=== PATIENT | female | born 1980 | race Caucasian/White ===

== ENCOUNTER 2018-03-15 15:54 | Outpatient (REF) | payer MEDICAID, SELFPAY | END 2018-03-15 16:14 | LOC: LBN 15:54 | PROVIDERS: PCP Family Medicine | DX: N89.8 Other specified noninflammatory disorders of vagina (principal) | CPT/HCPCS: 87480; 87510; 87660 ==

== ENCOUNTER 2018-03-16 01:47 | Outpatient (CLI) | payer MEDICAID, SELFPAY ==
[2018-03-16 11:45] LABS: ALT 142 U/L (12-78); AST 48 U/L (15-37); Albumin 3.8 g/dL (3.4-5.0); Alkaline Phosphatase 80 U/L (46-116); BUN 12 mg/dL (7-18); Bilirubin, Total 0.3 mg/dL (0.2-1.0); CREATININE 0.65 mg/dL (0.55-1.02); Calcium 8.4 mg/dL (8.5-10.1); Chloride 103 mmol/L (98-107); Cholesterol 192 mg/dL (50-200); Glucose 102 mg/dL (70-100); HDL Cholesterol 64 mg/dL (40-60); LDL CHOLESTEROL 116 mg/dL (<100); Potassium 4.6 mmol/L (3.5-5.1); Sodium 140 mmol/L (136-145); Triglyceride 82 mg/dL (30-150)
[2018-03-17 12:46] LABS: HIV-1/2 Ag & Ab Screen Negative (NEGAT)
== END 2018-03-16 02:07 ==
PROVIDERS: PCP Family Medicine
DX: I10 Essential (primary) hypertension (principal); Z13.220 Encounter for screening for lipoid disorders; Z11.4 Encounter for screening for human immunodeficiency virus [HIV]
CPT/HCPCS: 36415; 80053; 80061; 83721; 87389

== ENCOUNTER 2018-03-17 16:35 | Outpatient (REF) | payer MEDICAID, SELFPAY ==
--- NOTE | 2018-03-17 16:00 | PAPFT_PTH ---
PATIENT: Avani Haro LOC: [facility] U#:[id number] AGE/SX: 37/F ROOM: RE03/17/[address]: Fallon Gomes APRN : 1980 BED: DIS: 03/17/2018 SPEC #: [id number] RECD: 03/18/18 13:09 STATUS: MARYCARMEN REYvette #: [id number] LEEANN: 03/17/18 16:[address]: Fallon Gomes DEPT: [facility] Cytology RECD BY: Nirali Jack ENTERED: 03/18/18 13:09 SP TYPE: PAPFT OTHR DR: Mateo Farooq MD Tissues: 1 - CX/ENDOCX FOR PAP SMEARS Procedures: PAP THIN PREP/UVM Screening HPV DNA PROBE Comments: [id number] (CHLAMYDIA/GC)
[2018-03-19 15:40] LABS: Chlamydia Result Negative; GC Result Negative; Specimen Description SEE COMMENTS
== END 2018-03-17 16:55 ==
LOC: LBN 16:35
PROVIDERS: PCP Family Medicine
DX: Z12.4 Encounter for screening for malignant neoplasm of cervix (principal); Z11.51 Encounter for screening for human papillomavirus (HPV); Z11.3 Encounter for screening for infections with a predominantly sexual mode of transmission
CPT/HCPCS: 87491; 87591; 88142; 87624

== ENCOUNTER 2018-05-25 10:05 | Emergency (ER) | payer MEDICAID, SELFPAY ==
[2018-05-25 10:12] VITALS: BP 121/78; PULSE 99; RESP 18; TEMP 36.5; O2SAT 100
--- NOTE | 2018-05-25 10:41 | ED.GENADUL_ITS ---
Discharge Plan Disposition Patient Disposition: HOME Condition: Fair Discharge Details Chief Complaint: Orthopedic Clinical Impression: Muscle spasm, Musculoskeletal pain Primary Care Provider: Mateo Farooq ED Provider: Delmis Ramirez Home Meds and New Rx's Prescriptions: New lidocaine [Lidoderm] 5 % adhesive patch,medicated 1 patch TP DAILY Qty: 15 RF: 0 metaxalone [Skelaxin] 800 mg tablet 800 mg PO TID PRN (Reason: muscle pain) Qty: 10 RF: 0 Continued cholecalciferol (vitamin D3) 2,000 unit tablet 2,000 unit PO DAILY Qty: 90 RF: 3 lisinopril 10 mg tablet 10 mg PO DAILY Qty: 90 RF: 3 ranitidine HCl 150 mg tablet 150 mg PO BID Qty: 180 RF: 3 acetaminophen [Arthritis Pain Relief (acetam)] 650 MG tablet 2 tab PO BID RF: 0 Vyvanse 60 mg capsule 60 mg PO DAILY MDD 1 tab Qty: 30 RF: 0 Discharge Instructions Instructions: Muscle Spasm (ED) Additional Instructions: Encourage hydration. Continue with Tylenol as needed for discomfort. Lidoderm patches as prescribed for topical relief. Stretching as discussed. Skelaxin as prescribed to help with muscle spasm. REferral for physical therapy is a ttached. If you develop change in sensation, fevers/chills, chest pain, shortness of breath or other new/worsening symptoms please seek care urgently once again. If pain persists over the next 1-2 weeks please follow up with primary care physician. Stand Alone Forms: Work Release Referrals: Mateo Farooq [Primary Care Provider] - Discharge Data Discharge Date/Time-TO BE ENTERED AT DEPARTURE: 05/25/18 12:10 Medical Decision Making <RICHARD Ferguson - Last Filed: 05/26/18 08:11> Patient is a 37 year old female with c/c of left shoulder pain that began 4 days ago. She is indicating the superior aspect of the shoulder with pain radiating down the anterior aspect of her chest. Also endorsing discomfort under the left breast which she reports began a few weeks ago when she had a cold and pulled something. States that htis discomfort has been improving. Denies SOB. Denies pain with ambulation. Feels that movement, particularly flexion and movement of the shoulder worsen the discomfort. No fevers/chills. Denies pain in her neck. Has not noted rash. No recent trauma. 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 No personal or close family history of cardiac disease. She is an active smoker. Patient is s/p tubal ligation. History of GERD, kidney stones, TMJ disorder, chndromalacia, depression. Exam is significant for pain primarily along the trapezius that extends over the anterior superior aspect of the left chest wall. Considered atypical chest pain. Patient is low risk, pain primarily sounds musculoskeletal. However, will obtain EKG and labs for further evaluation particularly as her pain sounds migratory. Had been endorsing pain under the left breast as well, states this is associated with recent cough and is improving. As patient did not have trauma, no imaging is warranted at this time. Lungs are clear, NSR, no murmurs, rubs or gallops. No SOB. EKG reviewed by Dr. Matos, please see his note. No ischemic findings reported Labs without abnormality. Patient is feeling improved somewhat after Skelaxin and Lidoderm patch. I have encouraged gentle stretching. Exercises were given to the patient. Advised heat or ice to affected area. Pain is largely muscular in nature with degree of muscle spasm. Referral for physical therapy will be given. I did offer the patient work note, particularly for light duty as the patient's job entails heavy lifting. However, patient declines. Reports that she does have coworkers whom she can asked to help her. We discussed new/worsening symptoms and when to seek care urgently once again. We will refer her to physical therapy, prescribed lidocaine patches as well as the oral Skelaxin as this worked well for her. All of her questions and concerns were addressed and she is in agreement with this plan. <Cory Matos MD - Last Filed: 05/25/18 11:07> ECG Data Attestation: I personally reviewed and interpreted this ECG (s) as follows: Prior ECG tracings: not available for review Interpretation: sinus rhythm, rate of 81, pr 146, no acute st t wave ischemic findings HPI <RICHARD Ferguson - Last Filed: 05/26/18 08:11> General Mode of arrival: ambulatory . Date/Time Provider Initiated Documentation: 05/25/18 10:13 . Limitations to Documentation: no limitations . Information obtained by: patient . History of Present Illness 37 year old F presents to the emergency department with the chief complaint of left shoulder pain, described as moderate, with intensity rated at 7. Quality is described as aching, and is localized to the left and upper extremity. Patient reports radiation to back. Patient started experiencing this day(s) (4) and it has been constant. Immobilization improves symptom(s), Movement worsens symptoms . Patient notes denies chest pain, cough, fever/chills, headaches, nausea/vomiting, rash, shortness of breath and weakness. Patient did receive the following treatments prior to arrival, other (Tylenol) Related Data Home Medications Medication Instructions Recorded Confirmed acetaminophen [Arthritis Pain 2 tab PO BID 12/22/16 05/25/18 Relief (acetam)] cholecalciferol (vitamin D3) 2,000 2,000 unit PO DAILY #90 tab 03/15/18 05/25/18 unit tablet lisinopril 10 mg tablet 10 mg PO DAILY #90 tab-cap 03/15/18 05/25/18 ranitidine 150 mg tablet 150 mg PO BID #180 tab-cap 03/15/18 05/25/18 lisdexamfetamine 60 mg capsule 60 mg PO DAILY #30 cap MDD 1 tab 05/09/18 05/25/18 lidocaine [Lidoderm] 1 patch TP DAILY #15 each 05/25/18 metaxalone [Skelaxin] 800 mg PO TID PRN #10 tab 05/25/18 Previous Rx's Medication Instructions Recorded cholecalciferol (vitamin D3) 2,000 2,000 unit PO DAILY #90 tab 03/15/18 unit tablet lisinopril 10 mg tablet 10 mg PO DAILY #90 tab-cap 03/15/18 ranitidine 150 mg tablet 150 mg PO BID #180 tab-cap 03/15/18 lisdexamfetamine 60 mg capsule 60 mg PO DAILY #30 cap MDD 1 tab 05/09/18 lidocaine [Lidoderm] 1 patch TP DAILY #15 each 05/25/18 metaxalone [Skelaxin] 800 mg PO TID PRN #10 tab 05/25/18 Allergies Allergy/AdvReac Type Severity Reaction Status Date / Time aspirin Allergy Severe Anaphylaxsi Verified 05/25/18 10:14 s NSAIDS (Non-Steroidal Allergy Severe allergic Verified 05/25/18 10:14 Anti-Inflamma to all NSAIDS atomoxetine HCl Allergy Intermediate HIVES Verified 05/25/18 10:14 [From Strattera] sertraline Allergy Intermediate rash Verified 05/25/18 10:14 tramadol Allergy Mild Rash Verified 05/25/18 10:14 General Stated Complaint: Orthopedic KISHOR: 4 Review of Systems <RICHARD Ferguson - Last Filed: 05/26/18 08:11> Constitutional Reports as per HPI, Denies chills, Denies fever(s), Denies headache(s) and Denies weakness ENT Denies headache(s) Cardiovascular Reports as per HPI, Denies chest pain at rest, Denies chest pain with activity, Denies dyspnea and Denies dyspnea on exertion Respiratory Reports as per HPI, Denies cough, Denies dyspnea and Denies dyspnea on exertion Musculoskeletal Reports as per HPI and Denies tingling Integumentary/Breasts Reports as per HPI, Denies rash and Denies wounds Neurologic Denies headache(s), Denies tingling and Denies weakness PFSH <RICHARD Ferguson - Last Filed: 05/26/18 08:11> Medical History Chondromalacia Depression GERD (gastroesophageal reflux disease) Kidney stones Temporal mandibular joint disorder Umbilical hernia Surgical History Appendectomy (12/26/12) Arthroplasty of knee section Cholecystectomy (03/01/12) Open Carpal Tunnel release Repair of umbilical hernia Ureteroscopy, stone extraction Family History Mother Diabetes Essential hypertension Depression Hyperlipidemia Father Diabetes Essential hypertension Hyperlipidemia Grandfather Heart disease Grandfather Diabetes Heart disease Grandmother Personal history of malignant neoplasm Grandmother No problems noted. Brother Depression Son No problems noted. Son No problems noted. Daughter No problems noted. MATERNAL HISTORY Personal history of malignant neoplasm ADHD Social History household members: other details: 3 current occupational status: employed current occupation: CAREGIVER pets and animals: Yes pets and animals: dog(s) frequency: 1-2 times per week duration: 15-30 minutes/day Smoking/Tobacco Use Status: Current every day tobacco type: cigarettes alcohol intake: current alcohol intake frequency: a few times a month substance use type: does not use jo/christian: Episcopal special jo needs: No Exam <RICHARD Ferguson - Last Filed: 05/26/18 08:11> Const General: cooperative, healthy appearing, comfortable, no acute distress, well developed and well groomed Nutritional Appearance: average body habitus and well nourished Orientation: alert and awake Neck Neck: normal visual inspection, full ROM, no lymphadenopathy, no meningeal signs, trachea midline and supple Chest Chest: normal inspection of the chest, normal palpation of entire chest wall, no crepitus and tenderness pectoral muscle on the left (pain maximal along the superior boarder) Resp Effort & Inspection: normal respiratory effort, able to speak in complete sentences and no respiratory distress Auscultation: clear to auscultation bilaterally, no rales, no rhonchi and no wheezes Cardio Rate: regular rate Rhythm: regular rhythm Heart Sounds: S1 normal and S2 normal GI Inspection: normal to inspection, no abdominal wall ecchymosis, no edema, non- distended and no obesity Palpation: soft, no hepatosplenomegaly, not firm, no guarding and nontender Back/Spine/Pelvis Back: no CVA tenderness Cervical Spine: normal cervical lordosis and cervical ROM normal Thoracic/Lumbar Spine: thoracic and lumbar spine normal to inspection, thoraco- lumbar ROM normal, No thoracic spinal tenderness and No lumbar spinal tenderness Skin General skin exam: no rashes or lesions noted Lesions: no lesions Rashes: no rashes Trauma: no lacerations or abrasions Neuro General: alert and awake Cognition: normal cognition Speech: speech normal Gait: normal gait Motor: muscle tone normal throughout Sensory Exam: no sensory deficits noted Extrem General: normal to inspection, normal capillary refill, no joint enlargement, normal gait and other (2+ distal pulses) Left upper extremity: normal to inspection, full ROM, normal capillary refill, no joint enlargement and shoulder/upper arm Details: inspection abnormal, axillary nerve sensory function normal, normal ROM (patient has tenderness elicited along the trapezius at full FE but this does not limit her) and other (negative neer and Hawkin); no tenderness, no swelling, no abrasions, no ecchymosis and no crepitus; no cyanosis and no edema Psych Appearance: grossly normal and well kempt Mental Status: mental status grossly normal Speech and Movement: speech and movement normal Course <RICHARD Ferguson - Last Filed: 05/26/18 08:11> Vital Signs Temperature 36.5 C 05/25/18 10:12 Pulse 99 H 05/25/18 10:12 Respiratory Rate 18 05/25/18 10:12 Blood Pressure 121/78 05/25/18 10:12 Pulse Oximetry 100 05/25/18 10:12 Temperature 36.5 C 05/25/18 10:12 Temperature Source Temporal Artery Scan 05/25/18 10:12 Pulse 99 H 05/25/18 10:12 Respiratory Rate 18 05/25/18 10:12 Blood Pressure 121/78 05/25/18 10:12 Blood Pressure Position Sitting 05/25/18 10:12 Pulse Oximetry 100 05/25/18 10:12 Oxygen Delivery Method Room Air 05/25/18 10:12 Oxygen Flow Rate 0 05/25/18 10:12 Pain Level 7 05/25/18 10:12
[2018-05-25] MEDS: Lidocaine 5% Patch 1 PATCH TP (10:46)
[2018-05-25 11:10] LABS: Abs Immature Grans 0.01 k/cumm (0.0-0.09); Absolute Basophil Count 0.05 k/cumm (0.0-0.2); Absolute Eosinophil Count 0.09 k/cumm (0.0-0.7); Absolute Lymphocyte Count 2.06 k/cumm (1.2-3.4); Absolute Monocyte Count 0.45 k/cumm (0.11-0.7); Absolute Neutrophil Count 4.96 k/cumm (1.2-6.7); Basophils % 0.7; Eosinophils % 1.2; HCT 39.7 % (36.0-46.0); HGB 13.4 g/dL (12.0-15.5); Immature Grans % 0.1; Mean Corp. HGB Concentration 33.8 g/dL (32.0-36.0); Mean Corpuscular Hemoglobin 32.4 pg (27.0-33.0); Mean Corpuscular Volume 96.1 fL (80-95); Mean Platelet Volume 9.1 fL (8.0-11.0); Monocytes % 5.9; Neutrophils % 65.1; Platelet Count 316 x1000/uL (130-400); RBC 4.13 m/cumm (4.00-5.20); RBC Distribution Width 12.6 % (11.7-14.6); White Blood Cell Count 7.62 k/cumm (4.4-10.8)
[2018-05-25 11:22] LABS: ALT 25 U/L (12-78); AST 18 U/L (15-37); Alkaline Phosphatase 41 U/L (46-116); Anion Gap 11.9 mmol/L (3-11); BUN 15 mg/dL (7-18); Bilirubin, Total 0.3 mg/dL (0.2-1.0); CO2 24.1 mmol/L (21.0-32.0); Chloride 102 mmol/L (98-107); Glucose 116 mg/dL (70-100); Magnesium 1.8 mg/dL (1.8-2.4); Potassium 3.8 mmol/L (3.5-5.1); Sodium 138 mmol/L (136-145); Total Protein 7.5 g/dL (6.4-8.2); Troponin I < 0.02 ng/mL (0.00-0.06)
[2018-05-25 11:28] LABS: Calcium 9.3 mg/dL (8.5-10.1)
--- NOTE | 2018-05-25 11:57 | NUR.NOTE ---
Pt. sleeping, RR WNL.
[2018-05-25 12:03] VITALS: BP 113/64; PULSE 79; RESP 16; O2SAT 100
== END 2018-05-25 12:10 | disposition home or self-care (01) ==
LOC: ER 12:00
PROVIDERS: Emergency Provider Physician Assistant; PCP Family Medicine
DX: M62.838 Other muscle spasm (principal); M25.512 Pain in left shoulder
CPT/HCPCS: 80053; 93005; 99283; 83735; 84484; 85025; 93010

== ENCOUNTER 2018-05-26 16:09 | Outpatient (CLI) | payer MEDICAID, SELFPAY ==
--- NOTE | 2018-05-26 14:12 | DI.RAD_ITS ---
SYMPTOMS/DIAGNOSIS: LEFT-SIDED MUSCULOSKELETAL CHEST PAIN, R07.89, CHEST WALL PAIN, ? RIB FX PA AND LATERAL CHEST: The heart is normal in size. The lungs are clear. The mediastinal structures and pleura appear intact. SUMMARY: Normal chest.
== END 2018-05-26 16:29 ==
PROVIDERS: PCP Family Medicine; Visit Provider Nurse Practitioner Family
DX: R07.89 Other chest pain (principal)
CPT/HCPCS: 71046

== ENCOUNTER 2019-03-18 02:41 | Outpatient (CLI) | payer MEDICAID, SELFPAY ==
[2019-03-18 10:13] LABS: ALT 14 U/L (14-59); AST 11 U/L (15-37); Albumin 3.6 g/dL (3.4-5.0); Alkaline Phosphatase 44 U/L (46-116); Anion Gap 9.6 mmol/L (3-11); BUN 9 mg/dL (7-18); Bilirubin, Total 0.3 mg/dL (0.2-1.0); CO2 27.4 mmol/L (21.0-32.0); CREATININE 0.79 mg/dL (0.55-1.02); Calcium 8.5 mg/dL (8.5-10.1); Calculated LDL 147 mg/dL; Chloride 101 mmol/L (98-107); Cholesterol 230 mg/dL (50-200); Glucose 97 mg/dL (70-100); HDL Cholesterol 42 mg/dL (40-60); Potassium 4.6 mmol/L (3.5-5.1); Sodium 138 mmol/L (136-145); Total Protein 7.1 g/dL (6.4-8.2); Triglyceride 207 mg/dL (30-150)
[2019-03-18 10:34] LABS: C-Reactive Protein 0.06 mg/dL (0.0-0.3)
[2019-03-21 11:59] LABS: Rheumatoid Factor 16 IU/mL (<12.5)
== END 2019-03-18 03:01 ==
DX: I10 Essential (primary) hypertension (principal); M25.50 Pain in unspecified joint; Z13.220 Encounter for screening for lipoid disorders; Z00.00 Encounter for general adult medical examination without abnormal findings
CPT/HCPCS: 36415; 80053; 80061; 86140; 86431

== ENCOUNTER 2019-04-28 14:46 | Outpatient (CLI) | payer MEDICAID, SELFPAY ==
[2019-04-28 17:34] LABS: TSH (W/Ref FT4) 1.15 uIU/mL (0.36-3.74)
[2019-05-02 13:56] LABS: Chlamydia Result Negative (Negative)
[2019-05-02 15:09] LABS: GC Result Negative (Negative)
== END 2019-04-28 15:06 ==
PROVIDERS: Visit Provider Nurse Practitioner Family
DX: N92.6 Irregular menstruation, unspecified (principal); Z11.3 Encounter for screening for infections with a predominantly sexual mode of transmission
CPT/HCPCS: 36415; 87491; 87591; 84443

== ENCOUNTER 2019-05-04 01:37 | Outpatient (CLI) | payer MEDICAID, SELFPAY ==
--- NOTE | 2019-05-04 13:06 | DI.US_ITS ---
EXAM: US PELVIS AND TRANSVAGINAL CLINICAL HISTORY: Anormal bleeding, N93.9 TECHNIQUE: Ultrasound performed using standard protocol. COMPARISON: ABDOMEN ULTRASOUND from 07/26/2012 FINDINGS: Pelvic ultrasound was performed transabdominally and transvaginally. Please see the accompanying eduard a sheet for measurements of pelvic structures. There an old reported scar at the lower don rine segment with minimal myometrial deformity at this site. Endometrial stripe is homogeneous and a bout 10 millimeters in thickness. No free fluid identified in the cul-de-sac. Limited scanning of t he kidneys is unremarkable. IMPRESSION: Negative pelvic ultrasound.
== END 2019-05-04 01:57 ==
PROVIDERS: Visit Provider Nurse Practitioner Family
DX: N93.9 Abnormal uterine and vaginal bleeding, unspecified (principal)
CPT/HCPCS: 76830; 76856

== ENCOUNTER 2019-11-02 01:02 | Outpatient (CLI) | payer MEDICAID, SELFPAY ==
--- NOTE | 2019-11-02 07:45 | DI.MRI_ITS ---
EXAM: MR BRAIN WO CLINICAL HISTORY: ?MS,PARESTHESIA OF SKIN, R20.2. TECHNIQUE: Multiplanar multisequence MRI of the brain was performed. CONTRAST MATERIAL: Noncontrast COMPARISON: No exams were available for comparison FINDINGS: VENTRICLES AND EXTRA AXIAL SPACES: Normal in size and morphology for the patient's age. HEMORRHAGE: None. CEREBRAL PARENCHYMA: Normal jackson-white matter differentiation. There are a few scattered tiny high s ignal lesions seen on best on FLAIR images scattered in the white matter. No periventricular lesions are seen. No focus of restricted diffusion to suggest acute infarct. No space-occupying lesion iden tified. MIDLINE SHIFT: None. BRAINSTEM/CEREBELLUM: Normal. The vascular flow voids appear intact. The orbits and pituitary are unremarkable. VISUALIZED PARANASAL SINUSES/MASTOIDS: Clear. IMPRESSION: A few scattered tiny high signal foci in the white matter, nonspecific.. DATA REPOSITORY:
== END 2019-11-02 01:22 ==
PROVIDERS: Visit Provider Psychiatry & Neurology Neurology
DX: R20.2 Paresthesia of skin (principal); R90.82 White matter disease, unspecified
CPT/HCPCS: 36415; 80186; 70551; 82607; 83036; 84165

== ENCOUNTER 2020-03-22 02:33 | Outpatient (CLI) | payer MEDICAID, SELFPAY ==
[2020-03-22 10:30] LABS: C-Reactive Protein 0.13 mg/dL (0.0-0.3)
[2020-03-22 10:33] LABS: Calculated LDL 200 mg/dL (<100); Cholesterol 284 mg/dL (<200); HDL Cholesterol 41 mg/dL (40-60); Triglyceride 216 mg/dL (<150)
[2020-03-22 10:35] LABS: ALT 20 U/L (14-59); AST 14 U/L (15-37); Albumin 3.6 g/dL (3.4-5.0); Alkaline Phosphatase 39 U/L (46-116); Anion Gap 10.3 mmol/L (3-11); BUN 13 mg/dL (7-18); Bilirubin, Total 0.3 mg/dL (0.2-1.0); CO2 24.7 mmol/L (21.0-32.0); CREATININE 0.83 mg/dL (0.55-1.02); Calcium 9.3 mg/dL (8.5-10.1); Chloride 102 mmol/L (98-107); Glucose 103 mg/dL (74-106); Potassium 4.2 mmol/L (3.5-5.1); Sodium 137 mmol/L (136-145)
== END 2020-03-22 02:53 ==
PROVIDERS: Visit Provider Nurse Practitioner Family
DX: E78.5 Hyperlipidemia, unspecified (principal); I10 Essential (primary) hypertension; M06.9 Rheumatoid arthritis, unspecified; Z79.899 Other long term (current) drug therapy
CPT/HCPCS: 36415; 80048; 80053; 80061; 86140

== ENCOUNTER 2020-03-23 07:40 | Outpatient (CLI) | payer MEDICAID, SELFPAY ==
[2020-03-23 10:28] LABS: Abs Immature Grans 0.02 10^3/uL (0.0-0.06); Absolute Basophil Count 0.06 10^3/uL (0.0-0.2); Absolute Eosinophil Count 0.09 10^3/uL (0.0-0.7); Absolute Lymphocyte Count 2.89 10^3/uL (1.2-3.4); Absolute Neutrophil Count 2.16 10^3/uL (1.2-6.7); Basophils % 1.1; Eosinophils % 1.6; HCT 41.8 % (36.0-46.0); HGB 13.7 g/dL (11.2-15.7); Immature Grans % 0.4; Lymphocytes % 51.4; MCH 30.9 pg (27.0-33.0); MCHC 32.8 % (32.0-36.0); MCV 94.4 fL (80-95); MPV 9.4 fL (8.0-11.0); Monocytes % 7.1; Neutrophils % 38.4; Nucleated RBC 0 %; Platelet Count 272 10^3/uL (130-400); RBC 4.43 10^6/uL (3.93-5.22); RDW 12.7 % (11.7-14.6); RDW-SD 43.7 fL; WBC 5.62 10^3/uL (4.4-10.8)
== END 2020-03-23 08:00 ==
PROVIDERS: Visit Provider Nurse Practitioner Family
DX: M06.9 Rheumatoid arthritis, unspecified (principal); Z79.899 Other long term (current) drug therapy
CPT/HCPCS: 85025

== ENCOUNTER 2020-05-11 03:50 | Outpatient (CLI) | payer MEDICAID, SELFPAY ==
--- NOTE | 2020-05-11 08:15 | DI.US_ITS ---
EXAM: US RENAL CLINICAL HISTORY: right flank pain, hx of urinary calculi,Z98.890,R31.9,HEMATURIA,Z87.442. TECHNIQUE: Phillips scale, color and spectral Doppler were used. COMPARISON: CT RENAL COLIC WO CONTRAST from 09/13/2014 FINDINGS: Renal size in cm: Right: 13 left: 10.2 Echogenicity: Normal Hydronephrosis: No Cyst or mass: 1.9 centimeter cyst mid right kidney Nephrolithiasis: No none seen. Small bilateral stones were demonstrated on the previous CT Other findings: None Bladder:Normal Prevoid vol:94 cc Postvoid vol:9 cc Both ureteral jets were visualized. IMPRESSION: Small right renal cysts. No stones are demonstrated. No evidence of hydronephrosis. DATA REPOSITORY:
== END 2020-05-11 04:10 ==
DX: N28.1 Cyst of kidney, acquired (principal); Z87.442 Personal history of urinary calculi; R31.9 Hematuria, unspecified
CPT/HCPCS: 76770

== ENCOUNTER 2020-06-05 00:35 | Outpatient (CLI) | payer MEDICAID, SELFPAY ==
--- NOTE | 2020-06-05 08:30 | DI.MAMMO_ITS ---
EXAM: MAMMO SCREENING CLINICAL HISTORY: screening,Z12.39 TECHNIQUE: Mammograms were interpreted according to the usual protocol including computer analysis w [employer] CAD system, tomosynthesis and C-view imaging. COMPARISON: FINDINGS: The breasts are of moderate density with fairly symmetrical distribution of fibroglandular tissue. N o dominant mass or clumped microcalcification is identified in either breast. Today's examination is a baseline examination. IMPRESSION: No specific evidence of malignancy at this time. Routine screening examinations are suggested at yea rly intervals in this age group according to the ACR guidelines. BI-RADS Category 1 - Negative Breast Density - Category B - Scattered areas of fibroglandular density
== END 2020-06-05 00:55 ==
DX: Z12.31 Encounter for screening mammogram for malignant neoplasm of breast (principal)
CPT/HCPCS: 77063; 77067

== ENCOUNTER 2021-09-23 01:05 | Outpatient (CLI) | payer MEDICAID, SELFPAY ==
--- NOTE | 2021-09-23 08:00 | DI.US_ITS ---
Exam(s) US PELVIS TRANSVAGINAL EXAM: US PELVIS TRANSVAGINAL CLINICAL HISTORY: Abnormal uterine bleeding,N93.9 TECHNIQUE: Transabdominal and transvaginal imaging was performed using standard protocol. COMPARISON: CT RENAL COLIC WO CONTRAST from 09/13/2014 FINDINGS: KIDNEYS: Kidneys are symmetric in size. No evidence of renal calculi. No evidence of hydronephrosis. No renal mass or cyst identified. UTERUS: Anteverted. 8.7 x 4.3 x 6 cm. Endometrium: 11.5 millimeters in thickness. Endometrium not well seen transvaginally due to artifact . Endometrium appears heterogeneous. Myometrium: Unremarkable. scar noted. Cervix: Unremarkable. OVARIES: Right: Cyst or mass: None. Left: Cyst or mass: None. DOPPLER: Color: Symmetric and uniform flow to both ovaries. No hyperemia. Duplex: Normal ovarian arterial waveforms visualized. CUL-DE-SAC: Free fluid: None. IMPRESSION: 1. Mild thickening and heterogeneity of the endometrium. 2. Unremarkable bilateral ovaries. DATA REPOSITORY:
== END 2021-09-23 01:25 ==
PROVIDERS: PCP Internal Medicine; Visit Provider Obstetrics & Gynecology
DX: N93.8 Other specified abnormal uterine and vaginal bleeding (principal); R93.89 Abnormal findings on diagnostic imaging of other specified body structures; N85.8 Other specified noninflammatory disorders of uterus
CPT/HCPCS: 76830; 76856

== ENCOUNTER 2021-09-26 02:41 | Outpatient (CLI) | payer MEDICAID, SELFPAY ==
[2021-09-26 13:45] LABS: HCT 39.4 % (36.0-46.0); HGB 12.7 g/dL (11.2-15.7); MCH 29.4 pg (27.0-33.0); MCHC 32.2 % (32.0-36.0); MCV 91.2 fL (80-95); MPV 9.7 fL (8.0-11.0); Platelet Count 403 10^3/uL (130-400); RBC 4.32 10^6/uL (3.93-5.22); RDW 13.3 % (11.7-14.6); RDW-SD 44.9 fL; WBC 6.14 10^3/uL (4.4-10.8)
[2021-09-26 14:28] LABS: ALT 37 U/L (14-59); AST 20 U/L (15-37); Albumin 3.9 g/dL (3.4-5.0); Alkaline Phosphatase 47 U/L (46-116); Anion Gap 9.3 mmol/L (3-11); BUN 15 mg/dL (7-18); Bilirubin, Total 0.4 mg/dL (0.2-1.0); CO2 23.7 mmol/L (21.0-32.0); CREATININE 0.7 mg/dL (0.55-1.02); Calcium 8.9 mg/dL (8.5-10.1); Calculated LDL 193 mg/dL (<100); Chloride 102 mmol/L (98-107); Cholesterol 288 mg/dL (<200); Glucose 112 mg/dL (74-106); HDL Cholesterol 42 mg/dL (40-60); Potassium 4.1 mmol/L (3.5-5.1); Sodium 135 mmol/L (136-145); Total Protein 7.5 g/dL (6.4-8.2); Triglyceride 269 mg/dL (<150)
[2021-09-27 11:31] LABS: Hepatitis C Ab w Rflx HCV PCR Negative (Negative)
== END 2021-09-26 02:42 | disposition home or self-care (01) ==
LOC: LBO 02:41
PROVIDERS: Nurse Practitioner; PCP Internal Medicine; Visit Provider Internal Medicine
DX: I10 Essential (primary) hypertension (principal); Z11.59 Encounter for screening for other viral diseases
CPT/HCPCS: 36415; 80053; 80061; 85027; 86803

== ENCOUNTER 2021-10-08 12:48 | Outpatient (REF) | payer MEDICAID, SELFPAY ==
--- NOTE | 2021-10-08 11:15 | PAPFT_PTH ---
PATIENT: Avani Haro LOC: [facility] U#:[id number] AGE/SX: 41/F ROOM: RE10/08/[address]: Annika Chu MD : 1980 BED: DIS: 10/08/2021 SPEC #: [id number] RECD: 10/08/21 16:13 STATUS: MARYCARMEN CAREY #: [id number] LEEANN: 10/08/21 11:[address]: Annika Chu DEPT: [facility] Cytology RECD BY: Boogie Link Tissues: 1 - CX/ENDOCX FOR PAP SMEARS Procedures: PAP THIN PREP/UVM Screening HPV DNA PROBE Comments: [id number]
--- NOTE | 2021-10-08 11:15 | ENDOMET_PTH ---
PATIENT: Avani Haro LOC: [facility] U#:[id number] AGE/SX: 41/F ROOM: RE10/08/[address]: Annika Chu MD : 1980 BED: DIS: 10/08/2021 SPEC #: [id number] RECD: 10/08/21 14:38 STATUS: MARYCARMEN REQ #: [id number] LEEANN: 10/08/21 11:[address]: Annika Chu DEPT: Surgical Specimen RECD BY: Boogie Link ENTERED: 10/08/21 14:39 SP TYPE: Endomet OTHR DR: Elke Garcia MD Tissues: 1 - ENDOMETRIUM BX/SARA Procedures: GROSS AND MICRO LEVEL 4 Comments: [id number]
== END 2021-10-08 12:49 | disposition home or self-care (01) ==
LOC: LBN 12:48
PROVIDERS: PCP Internal Medicine; Visit Provider Obstetrics & Gynecology
DX: Z12.4 Encounter for screening for malignant neoplasm of cervix (principal); Z11.51 Encounter for screening for human papillomavirus (HPV); N93.8 Other specified abnormal uterine and vaginal bleeding; N85.8 Other specified noninflammatory disorders of uterus
CPT/HCPCS: 88142; 88305; 87624

== ENCOUNTER → 2021-10-28 01:58 | Outpatient (CLI) | payer MEDICAID, SELFPAY ==
--- NOTE | 2021-10-28 08:00 | DI.MAMMO_ITS ---
Exam(s) MAMMO SCREENING EXAM: MAMMO SCREENING CLINICAL HISTORY: screening, Z12.39 TECHNIQUE: Mammograms were interpreted according to the usual protocol including computer analysis w [employer] CAD system, tomosynthesis and C-view imaging. COMPARISON: 2020 FINDINGS: The breasts are composed of scattered fibroglandular densities, Breast Density category B. No suspicious masses or suspicious microcalcifications are seen. No skin thickening or abnormal axillary lymph nodes are seen. There has been no significant change from prior exams. IMPRESSION: BI-RADS Category 1, Negative mammogram Yearly screening mammography is recommended. Breast Density - Category B, scattered fibroglandular densities. A negative radiographic report should not delay biopsy if a dominant or clinically suspicious mass is present. Up to ten percent of cancers are not identified on mammography. A negative report may reinforce clinical impression. Adenosis and dense breasts may obscure an underlying neoplasm. False positive reports average 6 to 10%. Patient will receive a letter notifying them of these results.
== END ==
PROVIDERS: PCP Internal Medicine; Visit Provider Nurse Practitioner
DX: Z12.31 Encounter for screening mammogram for malignant neoplasm of breast (principal)
CPT/HCPCS: 77063; 77067

== ENCOUNTER 2022-02-15 13:19 | Emergency (ER) | payer MEDICAID, SELFPAY ==
[2022-02-15 13:23] VITALS: BP 146/68; PULSE 70; RESP 18; TEMP 36.6; O2SAT 100
--- NOTE | 2022-02-15 13:30 | DI.CT_ITS ---
Exam(s) CT RENAL COLIC WO EXAM: CT RENAL COLIC WO CLINICAL HISTORY: L flank pain. TECHNIQUE: Imaging Protocol: Axial computed tomography images with coronal and sagittal reformatted images were created and reviewed CONTRAST MATERIAL: Intravenous: none Oral: None COMPARISON: CT ABD PELVIS WITH CONTRAST from 09/10/2014 FINDINGS: VISUALIZED LUNG BASES: No nodules nor pleural effusions evident. ABDOMEN: There is no ascites. LIVER: There are no obvious focal hepatic lesions evident of this noninfused study. GALLBLADDER/BILIARY: Gallbladder is again noted be surgically absent. CBD is not dilated. PANCREAS: No evidence of pancreatic mass nor dilatation of the pancreatic duct. SPLEEN: Spleen is not enlarged. No obvious intrasplenic lesions. ADRENALS: There are no significant adrenal masses. KIDNEYS:In the right kidney there is a 2.8 by 1.8 cm partially exophytic cyst which has increased in size from 2015.. Nevertheless remains a simple appearing cyst. No other focal findings in the right kidney. In the opposite-left kidney there is a nonobstructive 4 millimeter calculus in the inferior pole calyx. However, there is also a calculus in the upper left ureter just below the UPJ level, th is calculus measuring 5 x 3 millimeters. Mild dilatation left collecting system above this level.. ABDOMINAL AORTA: Abdominal aorta is not enlarged. LYMPH NODES: There is no retroperitoneal nor paraaortic adenopathy. ABDOMINAL WALL: Left-sided para umbilical fat containing hernia again noted, increased in size from p revious but still not containing bowel loops within the hernia sac and there is no bowel obstruction evident. GI: There is no evidence of bowel obstruction, free air, nor abscess. PELVIS: LYMPH NODES: There is no intrapelvic nor inguinal adenopathy. GI: The appendix is surgically absent.There are few uncomplicated diverticuli in the sigmoid. No siva dence of acute diverticulitis. URINARY BLADDER: No calculi nor obvious masses evident REPRODUCTIVE: IUD noted in the uterine cavity. No significant adnexal masses. No free fluid. OSSEOUS: No significant osseous lesions. IMPRESSION: 1. There is mild left-sided hydronephrosis due to an obstructing 5 x 3 millimeter calculus just below the left ureteropelvic junction. There are no calculi seen below this level. There is an additiona l nonobstructive calculus in lower pole of the ipsilateral left kidney noted. 2. No calculi seen in the opposite-right kidney. 3. Gallbladder is again noted be surgically absent. No significant dilatation of the biliary tree. 4. Anterior abdominal hernia which contains mesenteric fat but no bowel loops therein. No bowel obs truction. IUD in the uterus in satisfactory position. RADIATION DOSE DELIVERED: 1,188.98mGy.cm Total DLP DATA REPOSITORY: All CT scans at this facility are submitted to the National Radiology Data Registry (NRDR) Dose Index Registry (DIR) with the [employer] (ACR). RADIATION OPTIMIZATION: All CT scans at this facility use at least one of these dose optimization te chniques: automated exposure control; mA and/or kV adjustment per patient size (includes targeted exa ms where dose is matched to clinical indication); or iterative reconstruction.
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
[2022-02-15 14:20] VITALS: O2SAT 99
[2022-02-15 14:21] VITALS: BP 121/73; PULSE 66
[2022-02-15 14:45] LABS: Bilirubin Color Interference (Negative); Blood Color Interference (Negative); Clarity Cloudy (Clear); Glucose Color Interference mg/dL (Negative); Ketones Color Interference mg/dL (Negative); Leukocyte Esterase Color Interference (Negative); Nitrite Color Interference (Negative); Specific Gravity 1.021 (1.005-1.025); Urobilinogen Color Interference EU/dL (Up TO 0.2)
[2022-02-15 14:51] LABS: Bacteria Rare HPF (Negative); C & S Indicated? Yes; Casts Negative LPF (Negative); Crystals Negative HPF (Negative); Epithelial Cells Rare HPF (Negative); Mucus Negative (Negative); RBC >50 HPF (0-2); WBC >50 HPF (0-5)
--- NOTE | 2022-02-15 15:03 | DI.VRAD_ITS ---
PROCEDURE INFORMATION: Exam: CT Abdomen And Pelvis Without Contrast Exam date and time: 02/15/2022 2:25 PM Age: 41 years old Clinical indication: Abdominal pain; Acute; Patient HX: Lt flank pain TECHNIQUE: Imaging protocol: Computed tomography of the abdomen and pelvis without contrast. Radiation optimization: All CT scans at this facility use at least one of these dose optimization techniques: automated exposure control; mA and/or kV adjustment per patient size (includes targeted exams where dose is matched to clinical indication); or iterative reconstruction. COMPARISON: US PELVIS TRANSVAGINAL 09/23/2021 1:20 PM FINDINGS: Liver: No focal intrahepatic abnormality is identified. Gallbladder and bile ducts: Prior cholecystectomy. No significant biliary ductal dilatation. Pancreas: Pancreas unremarkable Spleen: Spleen is unremarkable Adrenal glands: Adrenals are unremarkable Kidneys and ureters: There are bilateral nonobstructing renal calculi, largest is seen at the lower pole of the left kidney measuring approximately 4-5 mm in maximum diameter. There is [id number] left hydronephrosis secondary to an obstructing calculus in the proximal left ureter/left ureteral pelvic junction. This measures approximately 4 mm in diameter on series 3, image 418. It is located at approximately the level of the L3-L4 disc space. No other ureteral calculi are identified. No right hydronephrosis. There is a cyst noted laterally in the right kidney measuring approximately 2.8 cm in diameter on series 3, image 261. There is no solid mass identified on this noncontrast enhanced exam Stomach and bowel: No evidence of bowel obstruction. No discrete mass or pneumatosis. There are a few scattered diverticuli but no evidence of acute diverticulitis. Appendix: Prior appendectomy. Intraperitoneal space: No free fluid focal collections or free intraperitoneal air. Vasculature: Unremarkable. No abdominal aortic aneurysm. The Lymph nodes: Unremarkable. No enlarged lymph nodes. Urinary bladder: Bladder is nondistended. No bladder calculi are identified. There is apparent bladder wall thickening which is nonspecific given the lack of distension. Reproductive: Uterus is anteverted. There is an intrauterine device noted. No significant adnexal abnormality is identified. Bones/joints: There is no acute or destructive bony abnormality. Soft tissues: There is laxity of the ventral abdominal wall. There is rectus diastasis and a midline ventral hernia above and at the level of the umbilicus. It is eccentric to the left of midline. It contains only mesenteric fat. The subcutaneous soft tissues are otherwise unremarkable. IMPRESSION: 1. Left hydronephrosis secondary to an obstructing calculus left ureter L3-L4 level/left ureteral pelvic junction. Additional nonobstructing renal calculi. No right hydronephrosis or right renal calculi identified. 2. Laxity of the ventral abdominal wall/rectus diastasis with ventral hernia containing mesenteric fat Dictated and Authenticated by: Brittany Jeffery MD. Ordering:CANDICE Bryant MD
[2022-02-15] MEDS: Normal Saline 1,000 ML 1000 ML IV (15:06)
[2022-02-15] MEDS: Ondansetron 4 MG/2 ML VIAL IVP (15:08)
[2022-02-15] MEDS: HYDROmorphone 2 MG/ML SYR 1 MG IVP ×2 (15:08→16:54)
[2022-02-15 15:23] LABS: Abs Immature Grans 0.05 10^3/uL (0.0-0.06); Absolute Basophil Count 0.08 10^3/uL (0.0-0.2); Absolute Lymphocyte Count 1.19 10^3/uL (1.2-3.4); Absolute Monocyte Count 0.38 10^3/uL (0.1-0.8); Basophils % 0.6; Eosinophils % 0.5; HCT 40.4 % (36.0-46.0); HGB 13.5 g/dL (11.2-15.7); Immature Grans % 0.4; Lymphocytes % 9.2; MCH 29.7 pg (27.0-33.0); MCHC 33.4 % (32.0-36.0); MCV 89 fL (80-95); MPV 10.1 fL (8.0-11.0); Monocytes % 2.9; Neutrophils % 86.4; Platelet Count 367 10^3/uL (130-400); RBC 4.55 10^6/uL (3.93-5.22); RDW 13.1 % (11.7-14.6); RDW-SD 42.7 fL; WBC 12.94 10^3/uL (4.4-10.8)
[2022-02-15 15:29] LABS: Absolute Eosinophil Count 0.06 10^3/uL (0.0-0.7); Absolute Neutrophil Count 11.18 10^3/uL (1.2-6.7)
[2022-02-15 15:37] LABS: ALT 33 U/L (14-59); AST 20 U/L (15-37); Albumin 3.6 g/dL (3.4-5.0); Alkaline Phosphatase 42 U/L (46-116); Anion Gap 7.7 mmol/L (3-11); BUN 10 mg/dL (7-18); Bilirubin, Total 0.4 mg/dL (0.2-1.0); CO2 26.3 mmol/L (21.0-32.0); CREATININE 0.8 mg/dL (0.55-1.02); Calcium 8.8 mg/dL (8.5-10.1); Chloride 102 mmol/L (98-107); Estimated GFR 94.87 (mL/min/1.73m2); Glucose 120 mg/dL (74-106); Sodium 136 mmol/L (136-145); Total Protein 7.8 g/dL (6.4-8.2)
[2022-02-15] MEDS: Tamsulosin 0.4 MG CAPCR PO (16:25)
[2022-02-15] MEDS: ACETAMINOPHEN 1,000 MG/100 ML BTL 400 MG IVPB (16:55)
[2022-02-15] MEDS: Normal Saline Flush 10 ML SYR IVP (16:56)
[2022-02-15 17:47] VITALS: BP 111/72; PULSE 79; RESP 18; TEMP 36.8; O2SAT 99
[2022-02-15 18:04] VITALS: BP 111/72; PULSE 79; RESP 18; TEMP 36.8; O2SAT 99
--- NOTE | 2022-02-15 19:53 | NUR.NOTE ---
Referral faxed to [facility] Urology to f/u for kidney stone.Nursing Note:
== END 2022-02-15 18:09 | disposition home or self-care (01) ==
PROVIDERS: Emergency Provider Emergency Medicine; PCP Internal Medicine
DX: N13.2 Hydronephrosis with renal and ureteral calculous obstruction (principal); F17.200 Nicotine dependence, unspecified, uncomplicated
CPT/HCPCS: 80053; 81025; 96361; 96374; 96375; 99284; 74176; 81003; 81015; 85025; 87086; J0131; J1170; J2405

== ENCOUNTER 2022-02-19 13:45 | Outpatient (CLI) | payer MEDICAID, SELFPAY ==
[2022-02-19 13:32] LABS: HCT 34.5 % (36.0-46.0); HGB 11.6 g/dL (11.2-15.7); MCHC 33.6 % (32.0-36.0); MCV 89 fL (80-95); Platelet Count 329 10^3/uL (130-400); RBC 3.87 10^6/uL (3.93-5.22); RDW 13.1 % (11.7-14.6); RDW-SD 42.3 fL; WBC 10.23 10^3/uL (4.4-10.8)
[2022-02-19 13:47] LABS: Source Nasal/Nares
[2022-02-19 14:11] LABS: Bilirubin Negative (Negative); Blood Negative (Negative); Clarity Clear (Clear); Glucose Negative (Negative); Ketones Negative (Negative); Leukocyte Esterase Negative (Negative); Nitrite Positive (Negative)
[2022-02-19 14:22] LABS: Bacteria Few HPF (Negative); C & S Indicated? C&S Done As Ordered; Casts Negative LPF (Negative); Crystals Negative HPF (Negative); Epithelial Cells Few HPF (Negative); Mucus Negative (Negative); RBC 0-2 HPF (0-2); WBC 0-2 HPF (0-5)
[2022-02-19 16:53] LABS: COVID-19 PCR Negative (Negative)
== END 2022-02-19 13:46 | disposition home or self-care (01) ==
LOC: LBO 13:47
PROVIDERS: PCP Internal Medicine; Visit Provider Nurse Practitioner Gerontology
DX: N20.1 Calculus of ureter (principal); R50.9 Fever, unspecified; Z11.59 Encounter for screening for other viral diseases; Z20.822 Contact with and (suspected) exposure to COVID-19
CPT/HCPCS: 36415; 85027; 87077; 87635; 81003; 81015; 87086; 87186

== ENCOUNTER 2022-02-20 08:07 | Day surgery (SDC) | payer MEDICAID, SELFPAY ==
[2022-02-20] VITALS (10 sets, daily range): BP systolic 89–136; BP diastolic 44–93; PULSE 65–100; RESP 13–20; TEMP 36.2–36.6; O2SAT 95–100; BMI 34.7
--- NOTE | 2022-02-20 06:17 | W.ANESPRE ---
General Info Date of Service Date Performed: 02/20/22 Height: 5 ft 5 in Weight: 94.801 kg Body Mass Index (BMI): 34.7 Surgical Procedure: Operation Date: 02/20/22 09:55 Proposed Procedure Side Surgeon p Cystoscopy/Laser/Retrograde/Ureteroscopy/Stone Manipulation/? Stent Placement Left Doni Chanel MD Meds Allergies and Home Medications Allergies Allergy/AdvReac Type Severity Reaction Status Date / Time aspirin Allergy Severe Anaphylaxsi Verified 02/20/22 08:40 s naproxen Allergy Severe hives and Verified 02/20/22 08:40 swollen airway NSAIDS (Non-Steroidal Allergy Severe allergic Verified 02/20/22 08:40 Anti-Inflamma to all NSAIDS atomoxetine HCl Allergy Intermediate HIVES Verified 02/20/22 08:40 [From Strattera] sertraline Allergy Intermediate rash Verified 02/20/22 08:40 tramadol Allergy Mild Rash Verified 02/20/22 08:40 glucosamine AdvReac Intermediate Increased Verified 02/20/22 08:40 Joint Pain, Weakness Home Medication Medication Instructions Recorded acetaminophen 650 mg 2 tab PO BID 12/22/16 tablet,extended release (Arthritis Pain Relief (acetaminophen) ER) cholecalciferol (vitamin D3) 50 2,000 unit PO DAILY #90 tabs 08/23/20 mcg (2,000 unit) tablet hydroxyzine HCl 25 mg tablet 25 mg PO BID PRN 08/23/20 triamcinolone acetonide 0.5 % 1 applic topical BID rash #30 grams 08/23/20 topical ointment adalimumab 40 mg/0.4 mL 40 mg subcut Q2W 12/05/20 subcutaneous syringe kit (Humira(CF)) fexofenadine 180 mg tablet 180 mg PO DAILY 03/12/21 (Stephanie Allergy) albuterol sulfate 90 mcg/actuation 2 puff inhalation Q6H PRN 09/23/21 aerosol inhaler (Ventolin HFA) shortness of breath or wheezing #8 grams gabapentin 100 mg capsule 100 mg PO DAILY 09/23/21 lisinopril 10 mg tablet 10 mg PO DAILY #90 tab-caps 09/23/21 omeprazole 20 mg tablet,delayed 20 mg PO DAILY 09/23/21 release gabapentin 400 mg capsule 400 mg PO DAILY 10/08/21 levonorgestrel 20.1 mcg/24 hrs (6 1 device intrauterine ONCE 10/08/21 yrs) 52 mg intrauterine device (Liletta) oxycodone 5 mg tablet 5 mg PO Q8H PRN #7 tabs 02/15/22 tamsulosin 0.4 mg capsule (Flomax) 0.4 mg PO DAILY 7 days #7 caps 02/15/22 lisdexamfetamine 70 mg capsule 70 mg PO DAILY 02/20/22 (Vyvanse) tumeric 100 mg-blaine 150 mg-olive 1 cap PO 02/20/22 50 mg-oreg 150 mg-caprylate capsule Current Visit Medications: Current Medications Generic Name Dose Route Start Last Admin Trade Name Freq PRN Reason Stop Dose Admin Ringer's Solution 1,000 mls @ 80 mls/hr 02/20/22 06:00 IV 03/21/22 23:59 INFUSION JANELLE Cefazolin Sodium/Dextrose 2 gm in 50 mls @ 100 mls/hr 02/20/22 06:00 Ancef Duplex IVPB 02/20/22 16:00 PREOP JANELLE IV Miscellaneous Supplies 1 each 02/20/22 06:00 Iv Access IV 03/21/22 23:59 DIRECTED JANELLE Sodium Chloride 0 ml 02/20/22 06:00 Normal Saline Flush 10 Ml Syr IV 03/21/22 23:59 PRN PRN Sodium Chloride 0 ml 02/20/22 06:00 Normal Saline 10 Ml Vial IJ 03/21/22 23:59 DIRECTED PRN Sterile Water 0 ml 02/20/22 06:00 Water,Injection,Sterile 10 Ml Vial IJ 03/21/22 23:59 DIRECTED PRN PFSH Active Problems Active Problems: Problem Status Onset Code ADHD (attention deficit hyperactivity disorder), combined type 06/11/17 F90.2 Anxiety 05/25/12 F41.9 Chondromalacia M94.20 Depressive disorder 05/25/12 F32.9 Essential hypertension 10/15/15 I10 Gastroesophageal reflux disease K21.9 Smoker F17.200 Migraine headache without aura G43.009 Urinary incontinence in female R32 External hemorrhoids K64.4 Dermatitis L30.9 Pure hypercholesterolemia E78.00 Abnormal uterine bleeding N93.9 Dysmenorrhea N94.6 Calculus of proximal left ureter N20.1 Medical History Medical History Abscess of buccal cavity (03/13/16) Acute appendicitis (12/30/12) Acute pancreatitis (08/03/12) Bursitis Infected hernioplasty mesh (11/29/14) DR. RAYA S/P HERNIA REPAIR DATED 11/15/14 Kidney stones Knee pain, left Lateral epicondylitis of right elbow Pain in wrist Peripheral neuropathy Rheumatoid arthritis Rheumatoid factor positive with cyclic citrullinated peptide (CCP) antibody negative Temporomandibular joint disorder 2009; [facility] IN [place] Umbilical hernia Vitamin D deficiency Surgical History Surgical History Appendectomy (12/26/12) Arthroplasty of knee LEFT KNEE-Pt. denies this section X 3 Cholecystectomy (03/01/12) H/O surgical procedure a. appendectomy b. cholecystectomy c. left knee arthroscopy d. open carpal tunnel release bilaterally e. x 2 f. urteroscopy for stone extraction History of arthroscopy of knee Pt. denies this, states she had a cortisone injection History of section History of extraction of renal calculus History of surgical procedure (11/29/14) History of umbilical hernia repair (11/15/14) Open Carpal Tunnel release B/L - 12/19/15 included removal of scar tissue Repair of umbilical hernia 11/15/14 S/P endoscopic carpal tunnel release bilateral Status post carpal tunnel release Ureteroscopy, stone extraction Tobacco Smoking/Tobacco Use Status: Current every day Passive smoking exposure: Yes Alcohol Alcohol Intake: current Alcohol intake frequency: holidays/special occasions only Substance Use Substance use: Never Substance use type: does not use Prental History History 3 Para 3 Hx # Term Pregnancies Multiple births Hx # Pregnancies Ectopic pregnancies AB induced Hx Number of Living Children 3 AB spontaneous Past Pregnancies Del. Date GA/Weeks # Preg Succ Route Wgt Sex Labor Lgth Anesthesia Location [facility] 04/30/99 38 No 2920.001 g Male [place] 12/01/00 38 No 3203.496 g Male [place] 01/14/12 38 No 2948.35 g Female [place] Vital Signs and Lab Results Lab Results Blood Type / Crossmatch: No Data to Display Complete Blood Count: White Blood Count 10.23 10^3/uL (4.4-10.8) 02/19/22 13:05 Red Blood Count 3.87 10^6/uL (3.93-5.22) L 02/19/22 13:05 Hemoglobin 11.6 g/dL (11.2-15.7) 02/19/22 13:05 Hematocrit 34.5 % (36.0-46.0) L 02/19/22 13:05 Platelet Count 329 10^3/uL (130-400) 02/19/22 13:05 Complete Metabolic Panel: Sodium Level 136 mmol/L (136-145) 02/15/22 15:00 Potassium Level 4.0 mmol/L (3.5-5.1) 02/15/22 15:00 Chloride Level 102 mmol/L (98-107) 02/15/22 15:00 Carbon Dioxide Level 26.3 mmol/L (21.0-32.0) 02/15/22 15:00 Blood Urea Nitrogen 10 mg/dL (7-18) 02/15/22 15:00 Creatinine 0.8 mg/dL (0.55-1.02) 02/15/22 15:00 Calcium Level 8.8 mg/dL (8.5-10.1) 02/15/22 15:00 Albumin 3.6 g/dL (3.4-5.0) 02/15/22 15:00 Glucose Level 120 mg/dL (74-106) H 02/15/22 15:00 Liver Function Panel: Alanine Aminotransferase (ALT/SGPT) 33 U/L (14-59) 02/15/22 15:00 Aspartate Amino Transf (AST/SGOT) 20 U/L (15-37) 02/15/22 15:00 Coagulation Panel: No Data to Display Cardiac Panel: No Data to Display Arterial Blood Gas: No Data to Display Venous Blood Gas: No Data to Display Pancreas Panel: No Data to Display Thyroid Panel: No Data to Display Infectious Disease: Coronavirus (COVID-19)(PCR) Negative (Negative) 02/19/22 13:00 Coronavirus 2019 Source Nasal/Nares 02/19/22 13:00 Blood Cultures: No Data to Display Toxicology Panel: No Data to Display Panel: No Data to Display Anesthesia Assessment and Plan Anesthesia History Personal History: No History of Anesthesia Complications Family History: No Family History of Anesthesia Complications Exercise Tolerance Exercise Tolerance: Metabolic Equivalents>4 Cardiac & Pulmonary Exam Cardiac Exam: Normal S1/S2 Heart Sounds Pulmonary Exam: Clear Bilateral Breath Sounds Implantable Cardiac Device Does patient have a Pacemaker or an ICD?: No Airway Exam Known Difficult Airway: No Mallampati Class: 3 Mouth Opening: Normal (> 3cm) Thyromental Distance: Greater than 3 cm Neck Range of Motion: Full ROM Neck Circumference: Normal Teeth Condition: Normal Dentition ASA Classification ASA Score: ASA 2 Emergency Case?: No NPO Status NPO Status: NPO Clears >2 hours, Solids >8 hours Status Status: Negative HCG Anesthesia Plan Resuscitation Status: Full Code Anesthesia Technique: General Anesthesia Airway Planned: LMA Monitors Used: Standard Monitors Preoperative Comments:: 41 yo female with uretal stone. Sig PMHx: ADHD/anxiety/depression, GERD (omeprazole), HTN (lisinopril), neuropathy, RA (humira), TMJ, asthma (albuterol), smoker, off EtOH.
--- NOTE | 2022-02-20 09:17 | W.PM.OP ---
Date of service: 02/20/22 Time of Service: 10:51 Operative Note Operative Note DATE OF PROCEDURE: 02/20/22 PRE-OP DIAGNOSIS: left ureteral stone POST-OP DIAGNOSIS: same left renal stone PROCEDURE: Cystoscopy, left retrograde pyelogram, left flexible ureteroscopy, basket extraction of stones, insert left ureteral stent SURGEON: Doni Chanel ANESTHESIA TYPE: General LMA/ETT Refer to Anesthesia Record ESTIMATED BLOOD LOSS: 0 PATHOLOGY: other (stone for chemical analysis) COMPLICATIONS: None Patient was transported to: PACU Patient's condition: stable Implants: 4.8 Guatemalan by 22 to 30 cm left ureteral stent Indications: This is a 41-year-old woman who has a past history of kidney stones. She has undergone ESWL previously. She has never had a stone analysis or metabolic work-up. She presented to the emergency department about 5 days ago with left flank pain. She was found to have a proximal left ureteral stone along with a nonobstructing stone in the lower pole of the left kidney. She has not passed her stone and her symptoms have persisted. She presents now for stone manipulation. Findings: left ureteral stone bumped back into lower pole calyx during retrograde pyelogram Procedure Description: The patient was brought to the operating room on 02/20/2022. She was given a dose of preoperative IV antibiotics. After successful induction of general anesthesia, she was placed in the dorsal lithotomy position. Her genitalia was prepped and draped sterilely. 2% Xylocaine jelly was instilled into the urethra. A 22 Guatemalan rigid cystoscope was then passed through the urethra into the bladder. The bladder was inspected using a 30 degree lens. No stone fragments were seen within the bladder. No papillary or nodular mucosal lesions were seen. Both ureteral orifices appeared normal. The left orifice was cannulated with a 5 Guatemalan access catheter and a retrograde pyelogram was obtained by injecting Omnipaque through the access catheter under fluoroscopic guidance. The proximal ureter appeared dilated, but I did not identify a particular filling defect. I then passed a guidewire through the access catheter and removed the catheter leaving the wire in place. I placed a dual-lumen catheter over the wire and positioned a second wire. We chose one of the wires as a working wire and the other as a safety wire. The dual-lumen catheter was removed and ureteral access sheath was passed over the working wire. I then passed the flexible ureteroscope through the access sheath. I did not identify any stone in the proximal ureter but I did identify 2 stones in the lower pole calyx. I believe that I bumped a ureteral stone back up into the calyx during the retrograde pyelogram. Each of the stone pieces that were in the lower pole calyx was grasped in a 0 tip stone basket and removed in its entirety. The stones were sent to pathology for chemical analysis. Multiple smaller stone fragments were seen in the renal pelvis. These were all smaller than the diameter of the safety wire and are expected that they will pass on their own. The access sheath was removed. A 4.8 Guatemalan variable length stent was advanced over the safety wire. The proximal end of the stent was curled in the renal pelvis and the distal end was curled in the bladder. The stent positioning was confirmed both fluoroscopically and cystoscopically. The safety string was left in place and brought through the patient's urethra. The end of the string was tucked into the patient's vaginal cavity.
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
--- NOTE | 2022-02-20 09:30 | DI.RAD_ITS ---
Exam(s) XR RETROGRADE IN OR EXAM: XR RETROGRADE IN OR CLINICAL HISTORY: CALCULUS OF PROXIMAL LEFT URETER TECHNIQUE: 2D and realtime digital imaging was performed. CONTRAST MATERIAL: Refer to procedure report. COMPARISON: No exams were available for comparison FINDINGS: Fluoroscopy was provided for Dr. Chanel during the performance of a retrograde evaluation of the lia l collecting system. Please refer to the procedure report for complete details. Ka,r=12.9 mGy IMPRESSION: RADIATION DOSE DELIVERED:
--- NOTE | 2022-02-20 10:01 | W.ANESVAS ---
Midline Placement Date Performed: 02/20/22 Procedure Time: 08:50 Requesting Provider: Ilia Tucker Procedure Location: Day Surgery Unit Sedation Given (Indicate Dose Given): No Sedation given Patient Mental Status: Awake Sterility: Hand Hygiene, Surgical Cap, Surgical Mask and Chlorhexidine Laterality: Left Insertion Site: Brachial Midline Device: PowerGlide Pro 20G Catheter Length: 10 cm Midline Procedure Procedure: 1% Lidocaine to skin and subcutaneous tissue with 25g needle Dressing: Tegaderm Applied Blood Return: Present Flushes: Easily Ultrasound: Sterile probe cover and gel used Ultrasound Image Saved?: Yes Number of Attempts (See previous attempts in note section): 1 Procedure Tolerated: No Complications Procedure Outcome: Successful Performed By: Ilia Tucker
[2022-02-20] MEDS: ceFAZolin 2 GM/50 ML BAG IVPB (10:07)
[2022-02-20] MEDS: Lidocaine 2% Jelly 6 ML SYR (10:21)
--- NOTE | 2022-02-20 10:44 | W.PM.DSUDISC ---
Discharge Plan Disposition Patient Disposition: HOME Condition: Good Discharge Details Reason For Visit: ureteroscopy Attending Provider: Doni Chanel Primary Care Provider: Elke Garcia Home Meds and New Rx's Prescriptions: No Action Humira(CF) 40 mg/0.4 mL syringe kit 40 mg subcut Q2W fexofenadine [Stephanie Allergy] 180 mg tablet 180 mg PO DAILY omeprazole 20 mg tablet,delayed release (DR/EC) 20 mg PO DAILY albuterol sulfate [Ventolin HFA] 90 mcg/actuation HFA aerosol inhaler 2 puff IH Q6H PRN (Reason: shortness of breath or wheezing) Qty: 8 1RF lisinopril 10 mg tablet 10 mg PO DAILY Qty: 90 3RF gabapentin 100 mg capsule 100 mg PO DAILY Label Comments: see dose above gabapentin 400 mg capsule 400 mg PO DAILY Rx Instructions: 10/08/21-pt reports taking 300 mg in am and 200 mg in afternoon- nothing at hs. Liletta 20.1 mcg/24 hrs (6 yrs) 52 mg intrauterine device 1 device intrauterine ONCE Label Comments: in place Rx Instructions: as a single dose hydroxyzine HCl 25 mg tablet 25 mg PO BID PRN triamcinolone acetonide 0.5 % ointment 1 applic topical BID Qty: 30 2RF Rx Instructions: Apply thin layer to rash on chest, arms, and cheek 2x per day up to 2 weeks acetaminophen [Arthritis Pain Relief (acetam)] 650 MG tablet 2 tab PO BID cholecalciferol (vitamin D3) 50 mcg (2,000 unit) tablet 2,000 unit PO DAILY Qty: 90 3RF tamsulosin [Flomax] 0.4 mg capsule 0.4 mg PO DAILY 7 Days Qty: 7 0RF oxycodone 5 mg tablet 5 mg PO Q8H PRNQty: 7 0RF sijqpuu-knzq-qfliy-oreg-capryl 100 mg-150 mg- 50 mg-150 mg Capsule 1 cap PO Vyvanse 70 mg capsule 70 mg PO DAILY MDD 70mg Discharge Instructions Additional Instructions: no need to strain urine Followup early next week for stent removal - tell my office pt has string on stent Followup appt 6 to 8 weeks with renal US Activity:: Activity as Tolerated Shower/Bathe:: 24 hours Diet:: As Tolerated Discharge Orders Discharge Orders: Discharge Order (Routine); Ordered 02/20/22 Ordered By: Doni Chanel DS: Diagnosis Discharge Diagnosis (1) Calculus of proximal left ureter: Status: Acute
[2022-02-20] MEDS: Normal Saline 10 ML VIAL IJ (11:00)
[2022-02-20] MEDS: HYDROmorphone 2 MG/ML SYR IVP ×2 (11:00→11:11)
--- NOTE | 2022-02-20 11:00 | W.ANESPOSTOP ---
Postoperative Evaluation Date, Time and Location Date Performed: 02/20/22 Time Performed: 11:00 Patient Location: PACU Vital Signs Most Recent Imported Vital Signs: Most Recent Vital Signs Temp Pulse Resp BP Pulse Ox 36.6 C 93 H 18 128/68 100 02/20/22 08:52 02/20/22 08:52 02/20/22 08:52 02/20/22 08:52 02/20/22 08:52 Pain Score Most Recent Pain Score: Most Recent Pain Score Pain Level 6 02/20/22 08:52 Assessment Mental Status: Arousable with meaningful communication Airway and Respiratory Function: Patent airway with normal (patient baseline) respiratory exam Cardiovascular Function: Hemodynamically Stable Hydration Status: Adequately Hydrated Nausea & Vomiting: No Nausea or Vomiting Pain: Pain is tolerable per patient Peripheral Nerve Block: Patient did not receive a nerve block
[2022-02-20] MEDS: Phenazopyridine 200 MG TAB PO (11:16)
[2022-02-20] MEDS: oxyCODONE 5 MG TAB PO (12:21)
[2022-02-20] MEDS: Lactated Ringers 1,000 ML 80 ML IV (13:05)
[2022-02-24 15:11] LABS: Source: Left Ureter
== END 2022-02-20 13:45 | disposition home or self-care (01) ==
PROVIDERS: PCP Internal Medicine; Visit Provider Urology
PROC: (CPT 52320; principal; 2022-02-20 09:45)
DX: N20.1 Calculus of ureter (principal); I10 Essential (primary) hypertension; E78.00 Pure hypercholesterolemia, unspecified
CPT/HCPCS: 52320; 52332; 76942; 81025; 74420; 82365; J0131; J0690; J1100; J1170; J1885; J2405

== ENCOUNTER 2022-02-21 18:45 | Emergency (ER) | payer MEDICAID, SELFPAY ==
[2022-02-21] VITALS (21 sets, daily range): BP systolic 112–158; BP diastolic 56–99; PULSE 73–152; RESP 18; TEMP 36.6; O2SAT 92–100
--- NOTE | 2022-02-21 19:15 | DI.CT_ITS ---
Exam(s) CT RENAL COLIC WO EXAM: CT RENAL COLIC WO CLINICAL HISTORY: Recent stent placed and removed. TECHNIQUE: Imaging Protocol: Axial computed tomography images with coronal and sagittal reformatted images were created and reviewed CONTRAST MATERIAL: Intravenous: none Oral: None COMPARISON: CT CT RENAL COLIC WO from 02/15/2022 XA XR RETROGRADE IN OR from 02/20/2022 FINDINGS: VISUALIZED LUNG BASES: Small pleural based nodular density in the left lower lobe noted measuring 4 x 2 millimeters. No pleural effusions.. ABDOMEN: There is no ascites. LIVER: There are no obvious focal hepatic lesions evident of this noninfused study. GALLBLADDER/BILIARY: Gallbladder surgically absent. CBD is not dilated. PANCREAS: No evidence of pancreatic mass nor dilatation of the pancreatic duct. SPLEEN: Spleen is not enlarged. No obvious intrasplenic lesions. ADRENALS: There are no significant adrenal masses. KIDNEYS:There is a cyst in the lateral cortex of the right kidney which measures 2.8 by 2 cm, unchang ed. No other focal findings in the right kidney and no hydronephrosis on the right side. On the lef t side there is streaking around the recently instrumented left ureter and kidney. There is a tiny 1 millimeter calculus in the midpole left kidney. No other intrarenal calculi. No obvious radiopaque calculus seen within the upper left ureter,. On 1 image there is a subtle suggestion of a tiny 1 mi llimeter calculus in the left pelvic ureter (series 2/image 121). This is tiny and subtle. Urinary bladder is not distended and there is no air within the urinary bladder nor extravasation round the b ladder. ABDOMINAL AORTA: Abdominal aorta is not enlarged. LYMPH NODES: There is no retroperitoneal nor paraaortic adenopathy. ABDOMINAL WALL: No evidence of significant anterior abdominal wall nor inguinal hernia. GI: There is no evidence of bowel obstruction, free air, nor abscess. PELVIS: LYMPH NODES: There is no intrapelvic nor inguinal adenopathy. GI: No evidence of appendicitis.No evidence of sigmoid diverticulitis. URINARY BLADDER: No calculi nor obvious masses evident REPRODUCTIVE: There is an IUD in satisfactory position in the endometrial canal. Partially calcified right-sided uterine fibroid noted. Ovaries exhibit normal size. There is a small 1-2 millimeter ca lcification left ovary. No extraovarian adnexal masses. No free fluid in the pelvis. OSSEOUS: No significant osseous lesions. IMPRESSION: 1. Compared to the CT scan of 02/15/2022 there again noted tiny calculi in the left kidney. The larg er calculus which was previously present in the left kidney and calculus within the upper left ureter are no longer seen. However, there is mild left-sided hydronephrosis and hydroureter. Very subtle suggestion of a submillimeter calculus in the intrapelvic left ureter. Its size is sandlike. It may be artifact. No calculi seen in the urinary bladder. I note that this patient had a left side urolo gic procedure 02/20/2022 with placement of a left ureteral stent. This stent is no longer seen. 2. IUD in satisfactory position in the endometrial canal. RADIATION DOSE DELIVERED: 1,182.67mGy.cm Total DLP DATA REPOSITORY: All CT scans at this facility are submitted to the National Radiology Data Registry (NRDR) Dose Index Registry (DIR) with the [employer] (A[employer]). RADIATION OPTIMIZATION: All CT scans at this facility use at least one of these dose optimization te chniques: automated exposure control; mA and/or kV adjustment per patient size (includes targeted exa ms where dose is matched to clinical indication); or iterative reconstruction.
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
[2022-02-21 19:50] LABS: HCT 37.9 % (36.0-46.0); HGB 12.5 g/dL (11.2-15.7); MCH 29.5 pg (27.0-33.0); MCV 89 fL (80-95); MPV 10.6 fL (8.0-11.0); Platelet Count 326 10^3/uL (130-400); RBC 4.24 10^6/uL (3.93-5.22); RDW-SD 42.6 fL; WBC 20.94 10^3/uL (4.4-10.8)
[2022-02-21] MEDS: Ondansetron 4 MG/2 ML VIAL IVP (19:55)
[2022-02-21] MEDS: MORPHine 4 MG/ML SYR IVP (19:55)
[2022-02-21] MEDS: Normal Saline 1,000 ML 1000 ML IV (19:56)
[2022-02-21 20:14] LABS: ALT 98 U/L (14-59); AST 86 U/L (15-37); Albumin 3.1 g/dL (3.4-5.0); Alkaline Phosphatase 121 U/L (46-116); Anion Gap 8.3 mmol/L (3-11); BUN 16 mg/dL (7-18); Bilirubin, Total 0.6 mg/dL (0.2-1.0); CO2 27.7 mmol/L (21.0-32.0); CREATININE 0.9 mg/dL (0.55-1.02); Calcium 9.6 mg/dL (8.5-10.1); Chloride 98 mmol/L (98-107); Estimated GFR 82.37 (mL/min/1.73m2); Glucose 131 mg/dL (74-106); Sodium 134 mmol/L (136-145); Total Protein 8.7 g/dL (6.4-8.2)
[2022-02-21 20:21] LABS: Absolute Neutrophil Count 17.17 10^3/uL (1.2-6.7)
[2022-02-21 20:22] LABS: Absolute Monocyte Count 1.47 10^3/uL (0.1-0.8); Atypical Lymphocytes % 1; Diff Comment Manual Differential; RBC Morphology Normal
[2022-02-21 20:36] LABS: Bilirubin Negative (Negative); Blood Moderate (Negative); Clarity Sl Cloudy (Clear); Glucose Negative (Negative); Ketones Negative (Negative); Leukocyte Esterase Negative (Negative); Nitrite Negative (Negative); Specific Gravity >= 1.030 (1.005-1.025)
[2022-02-21] MEDS: MORPHine 10 MG/ML VIAL 2 MG IVP (20:41)
[2022-02-21 20:44] LABS: Bacteria Negative HPF (Negative); C & S Indicated? No; Crystals Negative HPF (Negative); Epithelial Cells Many HPF (Negative); Mucus Negative (Negative); RBC >50 HPF (0-2)
--- NOTE | 2022-02-21 20:50 | DI.VRAD_ITS ---
PROCEDURE INFORMATION: Exam: CT Abdomen And Pelvis Without Contrast Exam date and time: 02/21/2022 8:07 PM Age: 41 years old Clinical indication: Abdominal pain; Other: Back pain; Additional info: Back pain, recent kidney stent placed and removed TECHNIQUE: Imaging protocol: Computed tomography of the abdomen and pelvis without contrast. Radiation optimization: All CT scans at this facility use at least one of these dose optimization techniques: automated exposure control; mA and/or kV adjustment per patient size (includes targeted exams where dose is matched to clinical indication); or iterative reconstruction. COMPARISON: CT RENAL COLIC WO 02/15/2022 2:25 PM FINDINGS: Tubes, catheters and devices: Intrauterine device present in satisfactory position. Diaphragm: Small hiatal hernia. Liver: Normal. No mass. Gallbladder and bile ducts: Gallbladder surgically absent. Pancreas: Normal. No ductal dilation. Spleen: Normal. No splenomegaly. Adrenal glands: Normal. No mass. Kidneys and ureters: Moderate left hydronephrosis, increased from previous study. Previous left ureteral stone has passed. No new ureteral stones identified. Nonobstructing calyceal stones both kidneys. 2.4 cm right renal hypodensity that cannot be further characterized on the current examination. Stomach and bowel: Colonic diverticula present. No evidence of acute diverticulitis at this time. Appendix: No evidence of appendicitis. Intraperitoneal space: Unremarkable. No free air. No significant fluid collection. Vasculature: Unremarkable. No abdominal aortic aneurysm. Lymph nodes: Unremarkable. No enlarged lymph nodes. Urinary bladder: Unremarkable as visualized. Reproductive: Unremarkable as visualized. Bones/joints: Unremarkable. No acute fracture. Soft tissues: Fat containing ventral hernia without incarceration. Bilateral fat containing inguinal hernias without incarceration. IMPRESSION: Moderate left hydronephrosis, increased from previous study. Previous left ureteral stone has passed. No new ureteral stones identified. Dictated and Authenticated by: Patrick Rincon MD. Ordering:REINALDO Lino MD
[2022-02-21] MEDS: HYDROmorphone 2 MG/ML SYR 0.5 MG IVP (21:11)
[2022-02-21] MEDS: Cephalexin 500 MG CAP, 2 CAPS/BTL PO (22:28)
--- NOTE | 2022-02-22 00:38 | NUR.NOTE ---
Faxed referral to [facility] Urology for L flank pain s/p stent per Zoie Zuñiga on Thu or .Nursing Note:
== END 2022-02-21 22:37 | disposition home or self-care (01) ==
PROVIDERS: Emergency Provider Registered Nurse Emergency; PCP Internal Medicine
DX: R10.32 Left lower quadrant pain (principal); R33.9 Retention of urine, unspecified; R11.0 Nausea; F17.210 Nicotine dependence, cigarettes, uncomplicated; Z87.442 Personal history of urinary calculi
CPT/HCPCS: 36415; 80053; 96361; 96374; 96375; 96376; 99284; 74176; 81003; 81015; 85025; J1170; J2270; J2405; J3490

== ENCOUNTER 2022-04-01 02:21 | Outpatient (CLI) | payer MEDICAID, SELFPAY ==
[2022-04-01 09:22] LABS: Calculated LDL 165 mg/dL (<100); Cholesterol 272 mg/dL (<200); HDL Cholesterol 52 mg/dL (40-60); Triglyceride 278 mg/dL (<150)
== END 2022-04-01 02:22 | disposition home or self-care (01) ==
LOC: LBO 02:21
PROVIDERS: PCP Nurse Practitioner; Referring Provider Nurse Practitioner; Visit Provider Nurse Practitioner
DX: E78.5 Hyperlipidemia, unspecified (principal)
CPT/HCPCS: 36415; 80061

== ENCOUNTER → 2022-04-23 01:56 | Outpatient (CLI) | payer MEDICAID, SELFPAY ==
--- NOTE | 2022-04-23 06:45 | DI.US_ITS ---
Exam(s) US RENAL EXAM: US RENAL CLINICAL HISTORY: r/o hydronephrosis after ureteroscopy,calculus of proximal lt ureter, n20.1. TECHNIQUE: Phillips scale, color and spectral Doppler were used. COMPARISON: US US RENAL from 05/11/2020 US POCUS EXAM from 02/20/[address] RENAL COLIC WO from 02/21/2022 FINDINGS: Renal size in cm: Right: 10.8 left: 9.1 Echogenicity: Normal Hydronephrosis: No Cyst or mass: 3 centimeters cyst lateral right kidney. Nephrolithiasis: No Bladder:Normal Prevoid vol:59 Postvoid vol:0 IMPRESSION: Right renal cyst. No evidence of hydronephrosis. DATA REPOSITORY:
== END ==
PROVIDERS: PCP Nurse Practitioner; Visit Provider Urology
DX: N20.1 Calculus of ureter (principal); N28.1 Cyst of kidney, acquired
CPT/HCPCS: 76770

== ENCOUNTER 2022-07-21 01:14 | Outpatient (CLI) | payer MEDICAID, SELFPAY ==
[2022-07-21 08:48] LABS: HCT 45.1 % (36.0-46.0); HGB 14.6 g/dL (11.2-15.7); MCH 30.5 pg (27.0-33.0); MCHC 32.4 % (32.0-36.0); MCV 94 fL (80-95); MPV 9.8 fL (8.0-11.0); Platelet Count 336 10^3/uL (130-400); RBC 4.78 10^6/uL (3.93-5.22); RDW 13.9 % (11.7-14.6); RDW-SD 48.8 fL; WBC 6.43 10^3/uL (4.4-10.8)
[2022-07-21 09:15] LABS: ALT 19 U/L (14-59); AST 12 U/L (15-37); Albumin 3.7 g/dL (3.4-5.0); Alkaline Phosphatase 44 U/L (46-116); Anion Gap 8.7 mmol/L (3-11); BUN 14 mg/dL (7-18); Bilirubin, Total 0.2 mg/dL (0.2-1.0); CO2 27.3 mmol/L (21.0-32.0); CREATININE 0.7 mg/dL (0.55-1.02); Calcium 9.2 mg/dL (8.5-10.1); Chloride 102 mmol/L (98-107); Estimated GFR 111.36 (mL/min/1.73m2); Glucose 130 mg/dL (74-106); Potassium 3.9 mmol/L (3.5-5.1); Sodium 138 mmol/L (136-145); Total Protein 7.9 g/dL (6.4-8.2)
[2022-07-21 13:05] LABS: Lab Add On Test DONE
[2022-07-21 13:09] LABS: Hemoglobin A1C 5.8 % (<5.7)
== END 2022-07-21 01:15 | disposition home or self-care (01) ==
LOC: LBO 01:14
PROVIDERS: PCP Nurse Practitioner; Visit Provider Nurse Practitioner
DX: R73.03 Prediabetes (principal); R79.89 Other specified abnormal findings of blood chemistry; E78.5 Hyperlipidemia, unspecified; I10 Essential (primary) hypertension
CPT/HCPCS: 36415; 80053; 85027; 83036

== ENCOUNTER 2022-08-14 10:52 | Outpatient (REF) | payer MEDICAID, SELFPAY ==
[2022-08-16 13:16] LABS: Chlamydia Result Negative (Negative); GC Result Negative (Negative)
== END 2022-08-14 10:53 | disposition home or self-care (01) ==
LOC: LBN 10:52
PROVIDERS: PCP Nurse Practitioner; Visit Provider Nurse Practitioner
DX: N89.8 Other specified noninflammatory disorders of vagina (principal)
CPT/HCPCS: 87491; 87591; 87480; 87510; 87660

== ENCOUNTER 2022-10-12 14:59 | Inpatient (IN) | payer MEDICAID, SELFPAY ==
[2022-10-12] VITALS (49 sets, daily range): BP systolic 99–130; BP diastolic 58–98; PULSE 110–132; RESP 0–37; TEMP 37.7–41; O2SAT 70–100
--- NOTE | 2022-10-12 15:00 | DI.CT_ITS ---
Exam(s) CT CHEST/ABD/PEL W EXAM: CT CHEST/ABD/PEL W CLINICAL HISTORY: fever, cough, lower abdominal and back pain. TECHNIQUE: Imaging Protocol: Axial computed tomography images with coronal and sagittal reformatted images were created and reviewed CONTRAST MATERIAL: Intravenous: Omnipaque 350 Contrast volume:100 ml Oral: no COMPARISON: CT CT RENAL COLIC WO from 02/21/2022 FINDINGS: CHEST: Tracheobronchial tree: Patent where visualized. Pulmonary parenchyma: Consolidation medial right lower lobe. Remainder of the lungs are clear. Pleura: No effusion or pneumothorax. Lymph nodes: Within normal limits. Aorta: Thoracic portion non-dilated. Heart: Normal size. No pericardial effusion. Bones: Unremarkable for age. No lytic or blastic lesions.No compression fractures. ABDOMEN: Liver: Normal density. No measurable mass. Gallbladder and biliary tract: Status post cholecystectomy. No radiodense calculus or dilation. Pancreas: Normal density, no abnormal calcifications or inflammatory process. Spleen: Normal. Kidneys: Normal size, contour and axis. No radiodense stones or obstructive uropathy. Right renal cy st. No suspicious masses seen. Adrenal glands: No masses seen. Aorta: Abdominal portion non-dilated. Lymph nodes: Within normal limits. Soft tissues: Small fatty containing paraumbilical hernia, unchanged. PELVIS: Bladder: Symmetric distention, no gross wall thickening. Bowel: No obstruction or bowel wall thickening. Surgical clips at base of cecum. Peritoneal cavity: No ascites, collection or mesenteric inflammatory response. Bones: Unremarkable for age.. Reproductive organs: IUD again noted. IMPRESSION: Right lower lobe pneumonia. No acute abnormality in the abdomen or pelvis RADIATION DOSE DELIVERED: 1,482mGy.cm Total DLP DATA REPOSITORY: All CT scans at this facility are submitted to the National Radiology Data Registry (NRDR) Dose Index Registry (DIR) with the [employer] (ACR). RADIATION OPTIMIZATION: All CT scans at this facility use at least one of these dose optimization te chniques: automated exposure control; mA and/or kV adjustment per patient size (includes targeted exa ms where dose is matched to clinical indication); or iterative reconstruction.
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
[2022-10-12 15:29] LABS: Abs Immature Grans 0.31 10^3/uL (0.0-0.06); Absolute Basophil Count 0.07 10^3/uL (0.0-0.2); Absolute Eosinophil Count 0.09 10^3/uL (0.0-0.7); Absolute Monocyte Count 0.95 10^3/uL (0.1-0.8); Basophils % 0.3; Eosinophils % 0.4; HCT 38.8 % (36.0-46.0); Immature Grans % 1.4; Lymphocytes % 7.3; MCH 31.1 pg (27.0-33.0); MCHC 33.5 % (32.0-36.0); MCV 93 fL (80-95); MPV 9.7 fL (8.0-11.0); Monocytes % 4.3; Neutrophils % 86.3; Platelet Count 253 10^3/uL (130-400); RBC 4.18 10^6/uL (3.93-5.22); RDW 13.3 % (11.7-14.6); RDW-SD 45.3 fL
[2022-10-12 15:30] LABS: Absolute Lymphocyte Count 1.61 10^3/uL (1.2-3.4); Absolute Neutrophil Count 19.07 10^3/uL (1.2-6.7)
[2022-10-12] MEDS: Normal Saline 1,000 ML 1000 ML IV (15:33)
[2022-10-12] MEDS: Acetaminophen 500 MG TAB 1000 MG PO (15:33)
[2022-10-12 15:42] LABS: PTT Activated 32.5 sec (21.5-31.9); Prothrombin Time 10.1 sec (9.3-11.0)
[2022-10-12 15:52] LABS: ALT 27 U/L (14-59); AST 24 U/L (15-37); Albumin 3.2 g/dL (3.4-5.0); Alkaline Phosphatase 50 U/L (46-116); Anion Gap 10.9 mmol/L (3-11); BUN 12 mg/dL (7-18); Bilirubin, Total 0.4 mg/dL (0.2-1.0); CO2 24.1 mmol/L (21.0-32.0); CREATININE 1.1 mg/dL (0.55-1.02); Calcium 8.8 mg/dL (8.5-10.1); Chloride 96 mmol/L (98-107); Estimated GFR 64.34 (mL/min/1.73m2); Glucose 166 mg/dL (74-106); Magnesium 1.5 mg/dL (1.8-2.4); Potassium 3.9 mmol/L (3.5-5.1); Sodium 131 mmol/L (136-145); TSH (W/Ref FT4) 0.23 uIU/mL (0.36-3.74); Total Protein 8.1 g/dL (6.4-8.2)
[2022-10-12 16:09] LABS: FREE T4 0.86 ng/dL (0.76-1.46)
[2022-10-12 16:20] LABS: Procalcitonin 0.7 ng/mL
[2022-10-12 16:22] LABS: COVID-19 PCR Negative (Negative); Influenza A PCR Negative (Negative); Influenza B PCR Negative (Negative); RSV PCR Negative (Negative)
[2022-10-12 16:26] LABS: Source Nasopharynx
[2022-10-12 16:29] LABS: Bilirubin Negative (Negative); Blood Negative (Negative); Clarity Cloudy (Clear); Glucose Negative (Negative); Ketones Negative (Negative); Leukocyte Esterase Negative (Negative); Nitrite Negative (Negative); Specific Gravity 1.025 (1.005-1.025); Urobilinogen 0.2 mg/dL (Up to 0.2)
[2022-10-12 16:36] LABS: Bacteria Few HPF (Negative); C & S Indicated? C&S Done As Ordered; Casts 3-5 Hyaline LPF (Negative); Crystals Negative HPF (Negative); Epithelial Cells Many HPF (Negative); Mucus Negative (Negative); RBC 0-2 HPF (0-2)
[2022-10-12] MEDS: PIPERACILLIN/TAZO 4.5 GM in Normal Saline 100 ML IVPB (16:38)
[2022-10-12] MEDS: Lactated Ringers 1,000 ML 1000 ML IV (16:50)
[2022-10-12] MEDS: Ondansetron 4 MG/2 ML VIAL IVP (16:50)
[2022-10-12] MEDS: Normal Saline - Diluent 50 ML VIAL IJ (17:05)
[2022-10-12] MEDS: Omnipaque 350 MG/ML 100 ML BTL IJ (17:06)
[2022-10-12] MEDS: VANCOMYCIN 2,000 MG in Normal Saline 500 ML 250 MG IVPB (17:32)
--- NOTE | 2022-10-12 17:32 | DI.VRAD_ITS ---
PROCEDURE INFORMATION: Exam: CT Chest With Contrast; Diagnostic Exam date and time: 10/12/2022 17:03 Age: 42 years old Clinical indication: Other: Lower abd and back pain; Other: Fever cough TECHNIQUE: Imaging protocol: Diagnostic computed tomography of the chest with contrast. Contrast material: 350; Contrast volume: 100 ml; Contrast route: INTRAVENOUS (IV); COMPARISON: CT RENAL COLIC WO 02/21/2022 20:07 FINDINGS: Lungs: Consolidation with air bronchograms in the right lower lobe. No convincing masslike component is seen although follow-up should be considered Pleural spaces: No pneumothorax. No pleural effusion. Heart: No cardiomegaly. No pericardial effusion. Lymph nodes: No enlarged lymph nodes. Vasculature: No aortic aneurysm. Bones/joints: No acute fracture. Soft tissues: No suspicious lesions. IMPRESSION: Right lower lobe pneumonia. PROCEDURE INFORMATION: Exam: CT Abdomen And Pelvis With Contrast Exam date and time: 10/12/2022 17:03 Age: 42 years old Clinical indication: Other: Lower abd and back pain; Other: Fever cough TECHNIQUE: Imaging protocol: Computed tomography of the abdomen and pelvis with contrast. Contrast material: 350; Contrast volume: 100 ml; Contrast route: INTRAVENOUS (IV); COMPARISON: CT RENAL COLI WO 02/21/2022 20:07 FINDINGS: Liver: No mass. Gallbladder and bile ducts: Cholecystectomy. Pancreas: No ductal dilation. No masses. Spleen: No splenomegaly or focal lesions. Adrenal glands: No mass. Kidneys and ureters: Benign-appearing renal cysts and probable cysts. Stomach and bowel: No obstruction. No mucosal thickening. Appendix: No evidence of appendicitis. Intraperitoneal space: No free air. No significant fluid collection. Vasculature: No abdominal aortic aneurysm. Lymph nodes: No significantly enlarged lymph nodes. Urinary bladder: Unremarkable as visualized. Reproductive: IUD in the uterus in the expected position. Bones/joints: No acute fracture. Soft tissues: Ventral abdominal hernias containing fat without inflammation. IMPRESSION: 1. No acute findings. 2. Incidental findings as described. Dictated and Authenticated by: Gertrudis Madsen MD. Ordering:LUCINDA Ray MD
--- NOTE | 2022-10-12 19:00 | W.EDPROG ---
Date of service: 10/12/22 Time of Service: 19:01 Medical Decision Making 19: 01 patient responding to fluid resuscitation with improvement of blood pressure and heart rate, evidence of right lower lobe pneumonia, empiric antibiotics broad-spectrum coverage to include MRSA and Pseudomonas given patient's immunocompromise state. Given level of fatigue and persistent vital sign derangement as well as risk factors patient be admitted for further antibiotic therapy and close monitoring Sign Out Sign Out Data: Sign Out Comment: Rheumatoid arthritis on humira, fever since last night, lower abdomen/back pain. Pending labs and imaging results, reassessment after iv fluids and tylenol. Last updated by Cory Matos MD at 10/12/22 15:25 Discharge Plan Disposition Patient Disposition: Admit to [facility] Condition: Stable Discharge Details Clinical Impression: Pneumonia Primary Care Provider: Sari Chi ED Provider: Bishop Kwon Home Meds and New Rx's Prescriptions: No Action Humira(CF) 40 mg/0.4 mL syringe kit 40 mg subcut Q2W fexofenadine [Stephanie Allergy] 180 mg tablet 180 mg PO DAILY albuterol sulfate [Ventolin HFA] 90 mcg/actuation HFA aerosol inhaler 2 puff IH Q6H PRN (Reason: shortness of breath or wheezing) Qty: 8 1RF lisinopril 10 mg tablet 10 mg PO DAILY Qty: 90 3RF omeprazole 20 mg tablet,delayed release (DR/EC) 20 mg PO DAILY Qty: 90 3RF Liletta 20.1 mcg/24 hrs (6 yrs) 52 mg intrauterine device 1 device intrauterine ONCE Patient Comments: in place Rx Instructions: as a single dose [place] Saline Gel 1 applic topical BID-TID PRN (Reason: nasal congestion) Qty: 14.1 2RF hydroxyzine HCl 25 mg tablet 25 mg PO BID PRN triamcinolone acetonide 0.5 % ointment 1 applic topical BID Qty: 30 2RF Rx Instructions: Apply thin layer to rash on chest, arms, and cheek 2x per day up to 2 weeks clobetasol-emollient 0.05 % cream 1 applic topical BID 7 Days Qty: 30 0RF gabapentin 300 mg capsule 300 mg PO DAILY Qty: 90 3RF acetaminophen [Arthritis Pain Relief (acetam)] 650 MG tablet 2 tab PO BID cholecalciferol (vitamin D3) 50 mcg (2,000 unit) tablet 2,000 unit PO DAILY Qty: 90 3RF metronidazole 500 mg tablet 500 mg PO BID Qty: 14 0RF Rx Instructions: Females: Oral: 500 mg twice daily for 7 days. Note: Single 2 g dose is less effective (Ref), but some experts suggest it as an alternative for those unlikely to complete a multiday regimen (Ref). fluconazole [Diflucan] 150 mg tablet 150 mg PO DAILY PRN (Reason: vaginitis) Qty: 2 0RF miconazole nitrate [Monistat 1 Combo Pack] 1,200-2 mg-% kit See Rx Instructions vaginal .COMPLEX Qty: 1 0RF Rx Instructions: place 1 insert into vagina at bedtime day 1;apply cream to area outside vagina twice daily for up to 7 days vaginal mupirocin 2 % ointment 1 applic topical BID Qty: 22 0RF vigdynt-obwg-tgmnb-oreg-capryl 100 mg-150 mg- 50 mg-150 mg Capsule 1 cap PO DAILY Vyvanse 70 mg capsule 70 mg PO DAILY MDD 70mg
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
[2022-10-12] MEDS: ACETAMINOPHEN 1,000 MG/100 ML BTL 400 MG IVPB (21:04)
[2022-10-12] MEDS: MAGNESIUM SULFATE 4 GM/100 ML BAG IVPB (21:16)
[2022-10-12] MEDS: Normal Saline 1,000 ML 125 ML IV (22:00)
--- NOTE | 2022-10-12 22:06 | NUR.NOTE ---
Pt with fever of 41 on arrival to med surg floor from ED (see worklist flowsheet). intercell connector placer made aware. Bear hugger cooling placed on pt at 32 degrees C. Ice packs placed under pts arms. MD to bedside. Tylenol 1000mg IVPB x1 ordered and administered. doxycycline ordered. Will reassess temperature and mental status prn.
[2022-10-12] MEDS: DOXYCYCLINE 100 MG in Normal Saline 100 ML IVPB (22:59)
[2022-10-13] VITALS (15 sets, daily range): BP systolic 99–119; BP diastolic 65–73; PULSE 71–116; RESP 16–28; TEMP 37.5–39.5; O2SAT 97–100
[2022-10-13] MEDS: ACETAMINOPHEN 1,000 MG/100 ML BTL 400 MG IVPB ×3 (02:36→15:57)
[2022-10-13] MEDS: PIPERACILLIN/TAZO 4.5 GM in Normal Saline 100 ML IVPB ×5 (04:59→22:17)
[2022-10-13] MEDS: Normal Saline 1,000 ML 125 ML IV ×2 (06:05→14:23)
[2022-10-13] MEDS: VANCOMYCIN/WATER (PEG) 750 MG/150 ML BAG 150 MG IV ×2 (06:05→17:51)
[2022-10-13 07:03] LABS: Abs Immature Grans 0.15 10^3/uL (0.0-0.06); Absolute Lymphocyte Count 1.19 10^3/uL (1.2-3.4); Basophils % 0.4; Eosinophils % 0.6; HCT 34.8 % (36.0-46.0); HGB 11.7 g/dL (11.2-15.7); Immature Grans % 1.1; Lymphocytes % 8.6; MCH 31.7 pg (27.0-33.0); MCHC 33.6 % (32.0-36.0); MCV 94 fL (80-95); MPV 10.1 fL (8.0-11.0); Monocytes % 3.8; Neutrophils % 85.5; Platelet Count 172 10^3/uL (130-400); RBC 3.69 10^6/uL (3.93-5.22); RDW 13.7 % (11.7-14.6); RDW-SD 47.2 fL; WBC 13.86 10^3/uL (4.4-10.8)
[2022-10-13 07:18] LABS: Absolute Basophil Count 0.06 10^3/uL (0.0-0.2); Absolute Eosinophil Count 0.08 10^3/uL (0.0-0.7); Absolute Monocyte Count 0.53 10^3/uL (0.1-0.8); Absolute Neutrophil Count 11.85 10^3/uL (1.2-6.7)
[2022-10-13] MEDS: Omeprazole 20 MG CAPCR PO (07:35)
[2022-10-13 07:37] LABS: Anion Gap 9.6 mmol/L (3-11); BUN 9 mg/dL (7-18); CO2 21.4 mmol/L (21.0-32.0); Calcium 7.6 mg/dL (8.5-10.1); Chloride 101 mmol/L (98-107); Estimated GFR 72.13 (mL/min/1.73m2); Glucose 150 mg/dL (74-106); Magnesium 2.3 mg/dL (1.8-2.4); Potassium 3.2 mmol/L (3.5-5.1); Sodium 132 mmol/L (136-145)
[2022-10-13] MEDS: Gabapentin 300 MG CAP PO (08:36)
[2022-10-13] MEDS: Fexofenadine 180 MG TAB PO (08:36)
[2022-10-13] MEDS: Lisinopril 10 MG TAB PO (08:36)
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
[2022-10-13] MEDS: Potassium Chloride 20 MEQ TABCR 40 MEQ PO (12:12)
[2022-10-13] MEDS: DOXYCYCLINE 100 MG in Normal Saline 100 ML IVPB ×2 (12:13→23:06)
--- NOTE | 2022-10-13 16:48 | PGE_ITS ---
Date of Service Date of service: 10/13/22 Time of Service: 16:48 Assessment and Plan Assessment and plan (1) Sepsis: Status: Acute Assessment and plan: Due to PNA, present on admission. COntinue vanc/zosyn/doxycycline. Await blood/sputum cultures, urine for legionella/strep antigens, sputum for mycoplasma. Encourage IS/acapella. IVF as still quite febrile. WIll add stress dose steroids. (2) Acute adrenal insufficiency: Status: Acute Assessment and plan: As above (3) Pneumonia: Status: Acute Assessment and plan: As above (4) Rheumatoid arthritis: Status: Chronic Assessment and plan: On Humira and prednisone as outpatient. Adding stress dose steroids, as above. (5) ADHD (attention deficit hyperactivity disorder), combined type: Status: Chronic Assessment and plan: Continue Vyvanse. (6) Essential hypertension: Status: Chronic Assessment and plan: Continue lisinopril. (7) Gastroesophageal reflux disease: Status: Chronic Assessment and plan: Continue omeprazole. Qualifiers: Esophagitis presence: without esophagitis Qualified Code(s): K21.9 - Gastro-esophageal reflux disease without esophagitis (8) Smoker: Status: Acute Assessment and plan: Encourage cessation. WRitten for a nicotine patch. (9) Hypokalemia: Status: Acute Assessment and plan: Replete; recheck in am. Mag 2.3. (10) DVT prophylaxis: Status: Acute Assessment and plan: SC enoxaparin (11) Discharge planning issues: Status: Acute Assessment and plan: Full code COntinues to require hospitalization Subjective Subjective Interval history since last seen: Febrile for a lot of the day today. Reports diffuse body aches, sore throat. Was on steroids up until a couple of days ago - was taking 15 mg PO daily for a couple of days after being on 20 mg for a week. Denies dizziness, reports a headache, denies CP/SOB. Cough is productive of brownish sputum. Denies n/v. Rapid strep was negative. Exam Narrative Exam Narrative: General: Pleasant female who appears uncomfortable, A&Ox3 HEENT: EOMI, MMM Heart: RRR, no m/r/g Lungs: CTAB Abdomen: soft, nontender, nondistended Extremities: no edema BLEs Objective Last Vital Signs Temp 39.5 C H 10/13/22 16:00 Pulse 98 H 10/13/22 15:15 Resp 18 10/13/22 15:15 BP 110/66 10/13/22 15:15 Pulse Ox 98 10/13/22 15:15 Laboratory Results - last 24 hr 10/13/22 10/13/22 06:30 06:30 WBC 13.86 H RBC 3.69 L Hgb 11.7 Hct 34.8 L MCV 94 MCH 31.7 MCHC 33.6 RDW 13.7 Plt Count 172 MPV 10.1 Immature Gran % 1.1 Neutrophils % 85.5 Lymphocytes % 8.6 Monocytes % 3.8 Eosinophils % 0.6 Basophils % 0.4 Nucleated RBC % 0.0 Absolute Neutrophils 11.85 H Absolute Lymphocytes 1.19 L Absolute Monocytes 0.53 Absolute Eosinophils 0.08 Absolute Basophils 0.06 Sodium 132 L Potassium 3.2 L Chloride 101 Carbon Dioxide 21.4 Anion Gap 9.6 BUN 9 Creatinine 1.0 Est GFR (CKD-EPI 2020) 72.13 Glucose 150 H Calcium 7.6 L Magnesium 2.3 PAWSS Have you Been Recently Intoxicated or Drunk Within the Last 30 days?: Yes Have you Ever Experienced Previous Episodes of Alcohol Withdrawal?: No Have you ever Experienced Withdrawal Seizures?: No Have you ever Experienced Delirium Tremens(DT)s?: No Have you ever undergone Alcohol Rehabilitation Treatment (i.e, inpt ot outpatient treatment programs)?: No Have you ever Experienced Blackouts?: No Have you ever Combined Alcohol with other Downers within the last 90 days?: No Have you ever Combined Alcohol with any other Substance of Abuse during the last 90 days?: No Positive Blood Alcohol level on Presentation? [PCS.BAL]: No Evidence of Increased Autonomic Activity (i.e. HR>120, tremor, sweating, agitation, nausea)?: No Result: 1 Time Spent with Patient Time Spent with Patient: 25-34 minutes Time was spent: preparing to see the patient(eg.review tests), obtaining and/or reviewing separately otained hiistory, ordering medications,tests, procedures, referring, communicating with other health technical healthcare consultant, indepentently interpreting results, counseling the patient and care coordination
[2022-10-13] MEDS: guaiFENesin 600 MG TABCR PO ×2 (17:31→19:51)
[2022-10-13] MEDS: methylPREDNISolone SUCC 125 MG VIAL 60 MG IVP (17:31)
[2022-10-13 18:07] LABS: Legionella Ag Detection Urine Positive (Negative)
[2022-10-13] MEDS: Enoxaparin 40 MG/0.4 ML SYR SC (19:51)
[2022-10-13] MEDS: Calcium Carbonate 1.25 GM TAB PO (19:51)
[2022-10-13] MEDS: Benzonatate 200 MG CAP PO (19:51)
[2022-10-13] MEDS: Lactated Ringers 1,000 ML 125 ML IV (19:55)
[2022-10-14] VITALS (12 sets, daily range): BP systolic 102–144; BP diastolic 48–83; PULSE 61–80; RESP 2–26; TEMP 36.5–38.7; O2SAT 96–100
[2022-10-14] MEDS: Albuterol 2.5 MG/3 ML INH SOLN VIAL UPD ×2 (02:21→10:50)
[2022-10-14] MEDS: ACETAMINOPHEN 1,000 MG/100 ML BTL 400 MG IVPB (04:24)
[2022-10-14] MEDS: PIPERACILLIN/TAZO 4.5 GM in Normal Saline 100 ML IVPB ×2 (04:58→11:47)
[2022-10-14] MEDS: Lactated Ringers 1,000 ML 125 ML IV (06:31)
[2022-10-14 07:06] LABS: HCT 35.2 % (36.0-46.0); HGB 11.9 g/dL (11.2-15.7); MCH 30.8 pg (27.0-33.0); MCHC 33.8 % (32.0-36.0); MCV 91 fL (80-95); MPV 10.6 fL (8.0-11.0); Platelet Count 187 10^3/uL (130-400); RBC 3.86 10^6/uL (3.93-5.22); RDW 13.1 % (11.7-14.6); RDW-SD 43.8 fL; WBC 5.17 10^3/uL (4.4-10.8)
[2022-10-14] MEDS: Omeprazole 20 MG CAPCR PO (07:21)
[2022-10-14 07:27] LABS: Vancomycin, Trough 3.1 ug/mL (10.0-20.0)
[2022-10-14 07:38] LABS: BUN 9 mg/dL (7-18); CREATININE 0.9 mg/dL (0.55-1.02); Calcium 8.8 mg/dL (8.5-10.1); Chloride 103 mmol/L (98-107); Estimated GFR 81.86 (mL/min/1.73m2); Glucose 246 mg/dL (74-106); Magnesium 1.6 mg/dL (1.8-2.4); Potassium 3.3 mmol/L (3.5-5.1); Sodium 136 mmol/L (136-145)
[2022-10-14 07:41] LABS: Absolute Lymphocyte Count 0.52 10^3/uL (1.2-3.4); Absolute Neutrophil Count 4.45 10^3/uL (1.2-6.7); Atypical Lymphocytes % 1; Bands % 5; Diff Comment Manual Differential; Metamyelocytes % 1; Myelocytes % 1; RBC Morphology Normal
[2022-10-14] MEDS: VANCOMYCIN/WATER (PEG) 1.75 GM/350 ML BAG IV (09:29)
[2022-10-14] MEDS: Benzonatate 200 MG CAP PO ×3 (09:30→19:52)
[2022-10-14] MEDS: Fexofenadine 180 MG TAB PO (09:30)
[2022-10-14] MEDS: predniSONE 20 MG TAB 40 MG PO (09:30)
[2022-10-14] MEDS: guaiFENesin 600 MG TABCR PO ×2 (09:30→19:52)
[2022-10-14] MEDS: Gabapentin 300 MG CAP PO (09:31)
[2022-10-14] MEDS: Lisinopril 10 MG TAB PO (09:31)
[2022-10-14] MEDS: Calcium Carbonate 1.25 GM TAB PO ×2 (09:31→19:52)
[2022-10-14] MEDS: hydrOXYzine HCL 25 MG TAB PO (09:55)
[2022-10-14] MEDS: Potassium Chloride 20 MEQ TABCR 40 MEQ PO (09:55)
[2022-10-14] MEDS: Normal Saline 500 ML 50 ML IV (10:33)
[2022-10-14] MEDS: MAGNESIUM SULFATE 2 GM/50 ML BAG IVPB (10:34)
--- NOTE | 2022-10-14 11:05 | DI.RAD_ITS ---
Exam(s) XR PORTABLE CHEST AP EXAM: XR PORTABLE CHEST AP CLINICAL HISTORY: F/u PNA - worsening shortness of breath. TECHNIQUE: 2D digital imaging was performed. COMPARISON: CT CT CHEST/ABD/PEL W from 10/12/2022 FINDINGS: Single AP portable view. Heart size is upper normal. The mediastinum is not widened. There is persistent infiltrate in the right infrahilar region-right lower lobe as seen on recent CT s can. Also some mild parahilar infiltrate. Opposite-left lung remains clear and there are no obvious pleural effusions. IMPRESSION: Persistent right lower lobe infrahilar infiltrate, as seen on CT scan of 10/12/2022. No obvious pleural effusions evident on this portable AP view. DATA REPOSITORY: RADIATION DOSE DELIVERED:
[2022-10-14] MEDS: Insulin Aspart 300 UNITS/3 ML PEN SC ×3 (11:48→21:39)
[2022-10-14] MEDS: DOXYCYCLINE 100 MG in Normal Saline 100 ML 50 MG IVPB (12:59)
--- NOTE | 2022-10-14 14:24 | CHAPLAIN ---
Avani was resting in bed when I visited. She said she is feeling a bit better. Her mom will be picking up Avani's 10 year old daughter from school. I introduced myself explained my role and offered support.
--- NOTE | 2022-10-14 15:31 | W.PM.PROGNOT ---
Date of Service Date of service: 10/14/22 Time of Service: 15:31 Assessment and Plan Assessment and plan (1) Sepsis: Status: Acute Assessment and plan: Due to PNA, present on admission. Legionella urine antigen is positive. MRSA screen negative - vancomycin d/c'ed. Will switch to levofloxacin to cover for Legionella. Discussed with infection control and [place] [facility]. Blood cx w/ NGTD. Will get a legionella PCR. Encourage IS/acapella. Continue stress dose steroids. (2) Acute adrenal insufficiency: Status: Acute Assessment and plan: As above (3) Pneumonia: Status: Acute Assessment and plan: As above (4) Rheumatoid arthritis: Status: Chronic Assessment and plan: On Humira and prednisone as outpatient. Continue stress dose steroids. (5) ADHD (attention deficit hyperactivity disorder), combined type: Status: Chronic Assessment and plan: Continue Vyvanse. (6) Essential hypertension: Status: Chronic Assessment and plan: Continue lisinopril. (7) Gastroesophageal reflux disease: Status: Chronic Assessment and plan: Continue omeprazole. Qualifiers: Esophagitis presence: without esophagitis Qualified Code(s): K21.9 - Gastro-esophageal reflux disease without esophagitis (8) Smoker: Status: Acute Assessment and plan: Encourage cessation. Continue nicotine patch. (9) Hypokalemia: Status: Acute Assessment and plan: Replete; recheck in am. Also, replete magnesium. (10) DVT prophylaxis: Status: Acute Assessment and plan: SC enoxaparin (11) Discharge planning issues: Status: Acute Assessment and plan: Full code Continues to require hospitalization Discussed with infection control and with [place] [facility]. Subjective Subjective Interval history since last seen: Ms Haro is feeling a lot better today. Her throat feels better. Her achiness is better. Her breathing is worse when she lays flat. Denies dizziness, chest pain, nausea. Exam Narrative Exam Narrative: General: Pleasant female who appears uncomfortable, A&Ox3 HEENT: EOMI, MMM Heart: RRR, no m/r/g Lungs: CTAB Abdomen: soft, nontender, nondistended Extremities: no edema BLEs Objective Last Vital Signs Temp 37.1 C 10/14/22 14:35 Pulse 61 10/14/22 14:35 Resp 24 10/14/22 14:35 BP 139/80 10/14/22 14:35 Pulse Ox 98 10/14/22 14:35 Laboratory Results - last 24 hr 10/13/22 10/14/22 10/14/22 09:05 06:20 06:20 WBC RBC Hgb Hct MCV MCH MCHC RDW Plt Count MPV Immature Gran % Neutrophils % Band Neutrophils % Lymphocytes % Atypical Lymphs % Monocytes % Eosinophils % Basophils % Metamyelocytes % Myelocytes % Nucleated RBC % Absolute Neutrophils Absolute Lymphocytes Absolute Monocytes Absolute Eosinophils Absolute Basophils RBC Morphology Sodium 136 Potassium 3.3 L Chloride 103 Carbon Dioxide 20.0 L Anion Gap 13.0 H BUN 9 Creatinine 0.9 Est GFR (CKD-EPI 2020) 81.86 Glucose 246 H Calcium 8.8 Magnesium 1.6 L Vancomycin Trough 3.1 L Urine Legionella Ag Positive A 10/14/22 06:20 WBC 5.17 RBC 3.86 L Hgb 11.9 Hct 35.2 L MCV 91 MCH 30.8 MCHC 33.8 RDW 13.1 Plt Count 187 MPV 10.6 Immature Gran % 0.0 Neutrophils % 81.0 Band Neutrophils % 5 Lymphocytes % 9.0 Atypical Lymphs % 1 Monocytes % 2.0 Eosinophils % 0.0 Basophils % 0.0 Metamyelocytes % 1 Myelocytes % 1 Nucleated RBC % 0.0 Absolute Neutrophils 4.45 Absolute Lymphocytes 0.52 L Absolute Monocytes 0.10 Absolute Eosinophils 0.00 Absolute Basophils 0.00 RBC Morphology Normal Sodium Potassium Chloride Carbon Dioxide Anion Gap BUN Creatinine Est GFR (CKD-EPI 2020) Glucose Calcium Magnesium Vancomycin Trough Urine Legionella Ag PAWSS Have you Been Recently Intoxicated or Drunk Within the Last 30 days?: Yes Have you Ever Experienced Previous Episodes of Alcohol Withdrawal?: No Have you ever Experienced Withdrawal Seizures?: No Have you ever Experienced Delirium Tremens(DT)s?: No Have you ever undergone Alcohol Rehabilitation Treatment (i.e, inpt ot outpatient treatment programs)?: No Have you ever Experienced Blackouts?: No Have you ever Combined Alcohol with other Downers within the last 90 days?: No Have you ever Combined Alcohol with any other Substance of Abuse during the last 90 days?: No Positive Blood Alcohol level on Presentation? [PCS.BAL]: No Evidence of Increased Autonomic Activity (i.e. HR>120, tremor, sweating, agitation, nausea)?: No Result: 1 Time Spent with Patient Time Spent with Patient: 35-49 minutes Time was spent: preparing to see the patient(eg.review tests), obtaining and/or reviewing separately otained hiistory, ordering medications,tests, procedures, referring, communicating with other health senior care specialist, indepentently interpreting results, counseling the patient and care coordination
--- NOTE | 2022-10-14 16:25 | CMPROGNOTE_ITS ---
Care Management Progress Note Progress Note Text Progress Note Text: S/O: Avani is on IV ABX, steroids and continues to require inpatient hospitalization. Further medical workup is being done, cultures are pending. Avani is lying in bed when CM met with her. She is awake and engages in conversation. Per pt, her BS is elevated during this admission and notes that it's been board[place] line high for several years according to her PCP. She took insulin for the first time and is concerned because she feels shaky. RN is notified and assessed pt. A: 42 year old female admitted to [facility] on 10/12/22 for Acute Pneumonia, Immunocompromised P: Anticipate, Avani will discharge home via private vehicle with family when medically ready per provider. She will follow up with community providers and discharge plan of care as prescribed. CM will follow.
[2022-10-14] MEDS: Furosemide 20 MG/2 ML VIAL IVP (16:42)
[2022-10-14] MEDS: levoFLOXacin 750 MG/150 ML BAG 100 MG IVPB (19:52)
[2022-10-14] MEDS: Enoxaparin 40 MG/0.4 ML SYR SC (19:52)
[2022-10-14 23:26] LABS: Streptococcus Pneumoniae Ag, U Negative (Negative)
[2022-10-15] MEDS: Albuterol 2.5 MG/3 ML INH SOLN VIAL UPD (00:18)
[2022-10-15 04:06] VITALS: BP 109/59; PULSE 58; RESP 18; TEMP 36.6; O2SAT 96
[2022-10-15 07:16] LABS: Abs Immature Grans 0.09 10^3/uL (0.0-0.06); Absolute Basophil Count 0.02 10^3/uL (0.0-0.2); Absolute Lymphocyte Count 2.03 10^3/uL (1.2-3.4); Absolute Monocyte Count 0.46 10^3/uL (0.1-0.8); Absolute Neutrophil Count 4.98 10^3/uL (1.2-6.7); Basophils % 0.3; HCT 32.9 % (36.0-46.0); HGB 11.5 g/dL (11.2-15.7); Immature Grans % 1.2; Lymphocytes % 26.8; MCH 31.1 pg (27.0-33.0); MCV 89 fL (80-95); MPV 11.6 fL (8.0-11.0); Monocytes % 6.1; Neutrophils % 65.6; Platelet Count 191 10^3/uL (130-400); RDW 13.1 % (11.7-14.6); RDW-SD 42.7 fL; WBC 7.58 10^3/uL (4.4-10.8)
[2022-10-15 07:26] VITALS: BP 132/81; PULSE 63; RESP 18; TEMP 36.5; O2SAT 99
[2022-10-15 07:36] LABS: Hemoglobin A1C 6.1 % (<5.7)
[2022-10-15 07:37] LABS: Anion Gap 10.6 mmol/L (3-11); BUN 13 mg/dL (7-18); C-Reactive Protein 12.51 mg/dL (0.0-0.3); CO2 23.4 mmol/L (21.0-32.0); CREATININE 0.7 mg/dL (0.55-1.02); Calcium 8.8 mg/dL (8.5-10.1); Chloride 106 mmol/L (98-107); Estimated GFR 110.67 (mL/min/1.73m2); Glucose 129 mg/dL (74-106); Magnesium 1.7 mg/dL (1.8-2.4); Potassium 3.2 mmol/L (3.5-5.1); Sodium 140 mmol/L (136-145)
[2022-10-15 07:53] LABS: Procalcitonin 0.9 ng/mL
[2022-10-15] MEDS: Omeprazole 20 MG CAPCR PO (08:01)
[2022-10-15] MEDS: Benzonatate 200 MG CAP PO ×3 (08:01→19:38)
[2022-10-15] MEDS: Gabapentin 300 MG CAP PO (08:02)
[2022-10-15] MEDS: predniSONE 20 MG TAB 40 MG PO (08:02)
[2022-10-15] MEDS: Calcium Carbonate 1.25 GM TAB PO ×2 (08:02→19:38)
[2022-10-15] MEDS: Lisinopril 10 MG TAB PO (08:02)
[2022-10-15] MEDS: guaiFENesin 600 MG TABCR PO ×2 (08:03→19:38)
[2022-10-15] MEDS: Fexofenadine 180 MG TAB PO (08:03)
[2022-10-15] MEDS: MAGNESIUM SULFATE 2 GM/50 ML BAG IVPB (12:09)
[2022-10-15] MEDS: Potassium Chloride 20 MEQ TABCR 40 MEQ PO (12:10)
[2022-10-15 13:34] VITALS: BP 130/75; PULSE 74; RESP 18; TEMP 36.7; O2SAT 98
--- NOTE | 2022-10-15 14:38 | PDOC.CMPRO ---
Date of service: 10/15/22 Time of Service: 14:38 Care Management Progress Note Progress Note Text Progress Note Text: S/O: Avani is being treated for Legionella Pneumonia. She is on IV Levofloxacin , steroids and is starting to feel better. Anticipate discharge home tomorrow if medically ready. CM will follow. A: 42 year old female admitted to [facility] on 10/12/22 for Acute Pneumonia, Immunocompromised P: Anticipate, Avani will discharge home via private vehicle with family when medically ready per provider. She will follow up with community providers and discharge plan of care as prescribed. CM will follow.
[2022-10-15 15:00] VITALS: BP 131/89; PULSE 64; RESP 16; TEMP 36.5; O2SAT 98
--- NOTE | 2022-10-15 16:52 | PHA.REVIEW2 ---
Pharmacy Admission Review - Admission Clinical Review Hypokalemia (Acute) Discharge planning issues (Acute) DVT prophylaxis (Acute) Acute adrenal insufficiency (Acute) Sepsis (Acute) Pneumonia (Acute) Smoker (Acute) aspirin Allergy (Severe, Verified 08/14/22 10:09) Anaphylaxsis naproxen Allergy (Severe, Verified 08/14/22 10:09) hives and swollen airway NSAIDS (Non-Steroidal Anti-Inflamma Allergy (Severe, Verified 08/14/22 10:09) allergic to all NSAIDS atomoxetine HCl [From Strattera] Allergy (Intermediate, Verified 08/14/22 10:09) HIVES sertraline Allergy (Intermediate, Verified 08/14/22 10:09) rash tramadol Allergy (Mild, Verified 08/14/22 10:09) Rash glucosamine Adverse Reaction (Intermediate, Verified 08/14/22 10:09) Increased Joint Pain, Weakness Resuscitation Status Full Code Height 5 ft 5 in Weight 86.8 kg - Renal Dosing Renal Dosing: BUN 13 mg/dL (7-18) 10/15/22 06:10 Creatinine 0.7 mg/dL (0.55-1.02) 10/15/22 06:10 Medications needing adjustments: Reviewed (crcl = 113, no adjustments needed) - Anticoagulation Anticoagulation: Hgb 11.5 g/dL (11.2-15.7) 10/15/22 06:10 Hct 32.9 % (36.0-46.0) L 10/15/22 06:10 Plt Count 191 10^3/uL (130-400) 10/15/22 06:10 INR 1.0 (0.9-1.1) 10/12/22 15:20 Creatinine 0.7 mg/dL (0.55-1.02) 10/15/22 06:10 DVT Prophylaxis: Reviewed Medications: Enoxaparin (enoxaparin 40 mg daily) Therapeutic Anticoagulation: N/A - Opiate Usage Evaluate Pain Scale/Pains Meds: N/A - Relevant Labs Sodium 140 mmol/L (136-145) 10/15/22 06:10 Potassium 3.2 mmol/L (3.5-5.1) L 10/15/22 06:10 Chloride 106 mmol/L (98-107) 10/15/22 06:10 Magnesium 1.7 mg/dL (1.8-2.4) L 10/15/22 06:10 C-Reactive Protein 12.51 mg/dL (0.0-0.3) H 10/15/22 06:10 Electrolytes, C-Reactive P, ESR: Reviewed (K+ = 3.2, received 40 mEq PO today (40 mEq also given yesterday and the day before)) - DM Control DM Control: Glucose 129 mg/dL (74-106) H 10/15/22 06:10 Hemoglobin A1c 6.1 % (<5.7) H 10/15/22 06:10 Finger Stick Blood Glucose 173 Finger Stick Blood Glucose 173 Finger Stick Blood Glucose 131 Finger Stick Blood Glucose 131 Finger Stick Blood Glucose 131 DM Control: Reviewed (does not appear to have diabetes diagnosis (not on any anti-diabetic meds at home) but sugars are slightly elevated (on prednisone 40 mg daily) a1c = 6.1%) Insulin Dosing, Diabetic Medication: sliding scale insulin aspart ordered with meals and at bedtime, required a 24 hr total of 9 units yesterday, none so far today - Cardiac Review BP, HR, EF%: Reviewed - Qtc Review QTc: Not Reviewed (no EKG in the chart to review) - IV to PO Switch IV Medications: Intervened (tylenol switched to PO. continue levaquin IV, switch to PO tomorrow per Dr. Hawkins) - Home Meds Home Med List reviewed: Reviewed - Current meds Current Medication Order Review: Reviewed Antibiotic Review - Pharmacy Antibiotic Review Pharmacy Antibiotic Activity: 48 hour review (sepsis, pneumonia. Legionella urine antigen positive - on Levaquin 750 mg q24h IV (previously on zosyn, doxy), switch to PO tomorrow) Relevant Labs: Relevant Labs 10/15/22 10/15/22 06:10 06:10 C-Reactive Protein 12.51 H Procalcitonin 0.9
[2022-10-15] MEDS: Insulin Aspart 300 UNITS/3 ML PEN SC ×2 (17:15→21:31)
--- NOTE | 2022-10-15 17:26 | PGE_ITS ---
Date of Service Date of service: 10/15/22 Time of Service: 17:26 Assessment and Plan Assessment and plan (1) Sepsis: Status: Acute Assessment and plan: Due to Legionella PNA, present on admission. Continue levofloxacin. Anticipate discharge home tomorrow with levofloxacin. [place] [facility] department has been in contact with the patient and is investigating. Blood cx w/ NGTD. Legionella culture is in process - per department of health, it was intercepted from our lab. Encourage IS/acapella. Continue stress dose steroids. (2) Pneumonia: Status: Acute Assessment and plan: As above (3) Acute adrenal insufficiency: Status: Acute Assessment and plan: As above Would start to taper tomorrow. (4) Rheumatoid arthritis: Status: Chronic Assessment and plan: On Humira and prednisone as outpatient. Continue stress dose steroids. (5) ADHD (attention deficit hyperactivity disorder), combined type: Status: Chronic Assessment and plan: Continue Vyvanse. (6) Essential hypertension: Status: Chronic Assessment and plan: Continue lisinopril. (7) Gastroesophageal reflux disease: Status: Chronic Assessment and plan: Continue omeprazole. Qualifiers: Esophagitis presence: without esophagitis Qualified Code(s): K21.9 - Gastro-esophageal reflux disease without esophagitis (8) Smoker: Status: Acute Assessment and plan: Encourage cessation. Continue nicotine patch. (9) Hypokalemia: Status: Acute Assessment and plan: Replete; recheck in am. Also, replete magnesium. (10) DVT prophylaxis: Status: Acute Assessment and plan: SC enoxaparin (11) Discharge planning issues: Status: Acute Assessment and plan: Full code Continues to require hospitalization Anticipate discharge home tomorrow. Discussed with [place] department of health. Subjective Subjective Interval history since last seen: Ms Haro feels a lot better today. She continued to feel short of breath last night when laying flat, better when sitting up, but she is feeling better now. She denies dizziness, chest pain, nausea. Cough is almost nonproductive. We discussed that she will be discharged home tomorrow. Exam Narrative Exam Narrative: General: Pleasant female who looks significantly better, A&Ox3 HEENT: EOMI, MMM Heart: RRR, no m/r/g Lungs:slight rales at B bases Abdomen: soft, nontender, nondistended Extremities: no edema BLEs Objective Last Vital Signs Temp 36.5 C 10/15/22 15:00 Pulse 64 10/15/22 15:00 Resp 16 10/15/22 15:00 BP 131/89 10/15/22 15:00 Pulse Ox 98 10/15/22 15:00 Laboratory Results - last 24 hr 10/13/22 10/15/22 10/15/22 09:05 06:10 06:10 WBC RBC Hgb Hct MCV MCH MCHC RDW Plt Count MPV Immature Gran % Neutrophils % Lymphocytes % Monocytes % Eosinophils % Basophils % Nucleated RBC % Absolute Neutrophils Absolute Lymphocytes Absolute Monocytes Absolute Eosinophils Absolute Basophils Sodium Potassium Chloride Carbon Dioxide Anion Gap BUN Creatinine Est GFR (CKD-EPI 2020) Glucose Hemoglobin A1c 6.1 H Calcium Magnesium C-Reactive Protein Procalcitonin 0.9 Ur Strep pneumoniae Ag Negative 10/15/22 10/15/22 06:10 06:10 WBC 7.58 RBC 3.70 L Hgb 11.5 Hct 32.9 L MCV 89 MCH 31.1 MCHC 35.0 RDW 13.1 Plt Count 191 MPV 11.6 H Immature Gran % 1.2 Neutrophils % 65.6 Lymphocytes % 26.8 Monocytes % 6.1 Eosinophils % 0.0 Basophils % 0.3 Nucleated RBC % 0.0 Absolute Neutrophils 4.98 Absolute Lymphocytes 2.03 Absolute Monocytes 0.46 Absolute Eosinophils 0.00 Absolute Basophils 0.02 Sodium 140 Potassium 3.2 L Chloride 106 Carbon Dioxide 23.4 Anion Gap 10.6 BUN 13 Creatinine 0.7 Est GFR (CKD-EPI 2020) 110.67 Glucose 129 H Hemoglobin A1c Calcium 8.8 Magnesium 1.7 L C-Reactive Protein 12.51 H Procalcitonin Ur Strep pneumoniae Ag PAWSS Have you Been Recently Intoxicated or Drunk Within the Last 30 days?: Yes Have you Ever Experienced Previous Episodes of Alcohol Withdrawal?: No Have you ever Experienced Withdrawal Seizures?: No Have you ever Experienced Delirium Tremens(DT)s?: No Have you ever undergone Alcohol Rehabilitation Treatment (i.e, inpt ot outpatient treatment programs)?: No Have you ever Experienced Blackouts?: No Have you ever Combined Alcohol with other Downers within the last 90 days?: No Have you ever Combined Alcohol with any other Substance of Abuse during the last 90 days?: No Positive Blood Alcohol level on Presentation? [PCS.BAL]: No Evidence of Increased Autonomic Activity (i.e. HR>120, tremor, sweating, agitation, nausea)?: No Result: 1 Time Spent with Patient Time Spent with Patient: 25-34 minutes Time was spent: preparing to see the patient(eg.review tests), obtaining and/or reviewing separately otained hiistory, ordering medications,tests, procedures, referring, communicating with other health lawn care worker, indepentently interpreting results, counseling the patient and care coordination
[2022-10-15] MEDS: Nicotine 14 MG/24 HR PATCH TD (18:04)
[2022-10-15] MEDS: Normal Saline Flush 10 ML SYR IVP (18:04)
[2022-10-15] MEDS: levoFLOXacin 750 MG/150 ML BAG 100 MG IVPB (18:04)
[2022-10-15] MEDS: Enoxaparin 40 MG/0.4 ML SYR SC (19:38)
[2022-10-15 20:57] VITALS: BP 135/85; PULSE 74; RESP 18; TEMP 36.6; O2SAT 99
[2022-10-16 00:35] VITALS: BP 129/85; PULSE 66; RESP 20; TEMP 36.6; O2SAT 99
[2022-10-16 04:20] VITALS: BP 135/73; PULSE 77; RESP 18; TEMP 37; O2SAT 98
[2022-10-16] MEDS: Acetaminophen 325 MG TAB 650 MG PO (05:58)
[2022-10-16] MEDS: Omeprazole 20 MG CAPCR PO (05:58)
[2022-10-16 06:34] VITALS: BP 138/87; PULSE 75; RESP 18; TEMP 36.8; O2SAT 97
[2022-10-16 07:00] LABS: Abs Immature Grans 0.21 10^3/uL (0.0-0.06); Absolute Basophil Count 0.04 10^3/uL (0.0-0.2); Absolute Lymphocyte Count 3.09 10^3/uL (1.2-3.4); Absolute Monocyte Count 0.85 10^3/uL (0.1-0.8); Absolute Neutrophil Count 6.84 10^3/uL (1.2-6.7); Basophils % 0.4; HCT 36.6 % (36.0-46.0); HGB 12.6 g/dL (11.2-15.7); Immature Grans % 1.9; MCHC 34.4 % (32.0-36.0); MCV 90 fL (80-95); MPV 10.7 fL (8.0-11.0); Monocytes % 7.7; Platelet Count 287 10^3/uL (130-400); RBC 4.06 10^6/uL (3.93-5.22); RDW 13.2 % (11.7-14.6); RDW-SD 43.8 fL; WBC 11.03 10^3/uL (4.4-10.8)
[2022-10-16 07:19] LABS: BUN 16 mg/dL (7-18); CREATININE 0.7 mg/dL (0.55-1.02); Calcium 9.1 mg/dL (8.5-10.1); Chloride 102 mmol/L (98-107); Estimated GFR 110.67 (mL/min/1.73m2); Glucose 94 mg/dL (74-106); Magnesium 1.8 mg/dL (1.8-2.4); Potassium 3.6 mmol/L (3.5-5.1); Sodium 137 mmol/L (136-145)
[2022-10-16] MEDS: Fexofenadine 180 MG TAB PO (09:41)
[2022-10-16] MEDS: Calcium Carbonate 1.25 GM TAB PO (09:41)
[2022-10-16] MEDS: Benzonatate 200 MG CAP PO (09:41)
[2022-10-16] MEDS: Lisinopril 10 MG TAB PO (09:42)
[2022-10-16] MEDS: Gabapentin 300 MG CAP PO (09:42)
[2022-10-16] MEDS: predniSONE 20 MG TAB 40 MG PO (09:42)
[2022-10-16] MEDS: guaiFENesin 600 MG TABCR PO (09:42)
[2022-10-16 11:18] VITALS: BP 118/77; PULSE 78; RESP 16; TEMP 37.3; O2SAT 97
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
--- NOTE | 2022-10-16 16:13 | CMDISCH_ITS ---
Date of service: 10/16/22 Time of Service: 16:13 LACE Index Scoring Tool Questions: Length of Stay (in days): 4 - 6 Was the patient admitted via the E.D.?: Yes E.D. Visits: 2 Answers: Total Score: 9 Risk of Readmission: Low Risk Care Management Discharge Plan Reason for Hospitalization: RLL Pneumonia, Immunocompromised Discharge Plan: Avani will discharge home via private vehicle with family when medically ready per provider. She will follow up with community providers and discharge plan of care as prescribed. CM called [facility] to ensure Levaquin prescription would be available, Stella advised it would. Avani will transport via private vehicle with family. Patient/Family Education Needs: Review discharge instructions, discuss Ask Me Three.
[2022-12-08 09:23] LABS: Misc Referral (VDH) See Comments
== END 2022-10-16 14:19 | disposition home or self-care (01) | DRG 871 ==
LOC: ER 19:23 → MS 20:08
PROVIDERS: Emergency Medicine; Internal Medicine; Admitting Provider Family Medicine; Emergency Provider Emergency Medicine; PCP Nurse Practitioner; Visit Provider Family Medicine
DX: A41.9 Sepsis, unspecified organism (principal); A48.1 Legionnaires' disease; D84.821 Immunodeficiency due to drugs; E27.49 Other adrenocortical insufficiency; M06.9 Rheumatoid arthritis, unspecified; F90.2 Attention-deficit hyperactivity disorder, combined type; K21.9 Gastro-esophageal reflux disease without esophagitis; I10 Essential (primary) hypertension; F17.210 Nicotine dependence, cigarettes, uncomplicated; E87.6 Hypokalemia; Z79.620 Long term (current) use of immunosuppressive biologic; F32.A Depression, unspecified; R32 Unspecified urinary incontinence; F41.9 Anxiety disorder, unspecified; M94.20 Chondromalacia, unspecified site; G43.009 Migraine without aura, not intractable, without status migrainosus; E78.00 Pure hypercholesterolemia, unspecified; N94.6 Dysmenorrhea, unspecified
CPT/HCPCS: 36415; 74177; 80048; 80053; 81025; 84145; 87040; 87081; 87449; 87637; 94618; 96361; 96365; 96366; 96367; 96375; 99285; J1650; 71045; 71260; 80202; 81003; 81015; 83036; 83735; 84439; 84443; 85025; 85610; 85730; 86140; 87070; 87086; 87205; 87581; 87899; 94640; 94667; 94668; 99223; 99232; 99233; 99239; J0131; J1941; J1956; J2405; J2543; J2930; J3475; J3490; J7512; J7613

== ENCOUNTER 2024-05-07 15:58 | Emergency (ER) | payer MEDICAID, SELFPAY ==
[2024-05-07 16:03] VITALS: BP 140/89; PULSE 104; RESP 14; TEMP 36.6; O2SAT 98
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
[2024-05-07] MEDS: Lidocaine 5% Patch 1 PATCH TP (16:56)
[2024-05-07] MEDS: Acetaminophen 325 MG TAB 650 MG PO (16:56)
[2024-05-07] MEDS: diazePAM 2 MG TAB PO (16:56)
[2024-05-07 16:59] VITALS: BP 136/80; PULSE 87; RESP 15; TEMP 36.6; O2SAT 99
[2024-05-07] MEDS: Gabapentin 100 MG CAP PO (18:47)
[2024-05-07] MEDS: diazePAM 5 MG TAB PO (19:01)
== END 2024-05-07 19:02 | disposition home or self-care (01) ==
PROVIDERS: Emergency Provider Nurse Practitioner Family; PCP Nurse Practitioner
DX: M62.830 Muscle spasm of back (principal); X50.0XXA Overexertion from strenuous movement or load, initial encounter; M06.9 Rheumatoid arthritis, unspecified; I10 Essential (primary) hypertension; F90.2 Attention-deficit hyperactivity disorder, combined type; Z87.19 Personal history of other diseases of the digestive system
CPT/HCPCS: 99283; 99284

== ENCOUNTER 2024-07-22 00:39 | Outpatient (CLI) | payer MEDICAID, SELFPAY ==
[2024-07-22 08:39] LABS: Abs Immature Grans 0.04 10^3/uL (0.0-0.06); Absolute Eosinophil Count 0.16 10^3/uL (0.0-0.7); Absolute Monocyte Count 0.56 10^3/uL (0.1-0.8); Absolute Neutrophil Count 4.52 10^3/uL (1.2-6.7); Basophils % 1.3 %; Eosinophils % 2.1 %; HCT 46.2 % (36.0-46.0); HGB 15.2 g/dL (11.2-15.7); Immature Grans % 0.5 %; MCH 31.1 pg (27.0-33.0); MCHC 32.9 % (32.0-36.0); MCV 95 fL (80-95); MPV 9.2 fL (8.0-11.0); Monocytes % 7.4 %; Neutrophils % 59.7 %; Platelet Count 371 10^3/uL (130-400); RBC 4.88 10^6/uL (3.93-5.22); RDW 12.4 % (11.7-14.6); RDW-SD 43.4 fL; WBC 7.58 10^3/uL (4.4-10.8)
[2024-07-22 08:44] LABS: Hemoglobin A1C 6.2 % (<5.7)
[2024-07-22 09:09] LABS: ALT 27 U/L (14-59); AST 14 U/L (15-37); Albumin 3.7 g/dL (3.4-5.0); Alkaline Phosphatase 52 U/L (46-116); Anion Gap 6.9 mmol/L (3-11); BUN 11 mg/dL (7-18); Bilirubin, Total 0.63 mg/dL (0.2-1.0); CO2 30.1 mmol/L (21.0-32.0); CREATININE 0.9 mg/dL (0.55-1.02); Calcium 9.4 mg/dL (8.5-10.1); Calculated LDL 183 mg/dL (<100); Chloride 105 mmol/L (98-107); Cholesterol 292 mg/dL (<200); Estimated GFR 81.35 (mL/min/1.73m2); Glucose 140 mg/dL (74-106); HDL Cholesterol 50 mg/dL (40-60); Potassium 4.5 mmol/L (3.5-5.1); Sodium 142 mmol/L (136-145); Total Protein 7.6 g/dL (6.4-8.2); Triglyceride 299 mg/dL (<150)
== END 2024-07-22 00:40 | disposition home or self-care (01) ==
LOC: LBO 00:39
PROVIDERS: Absent Provider Nurse Practitioner; PCP Nurse Practitioner; Referring Provider Nurse Practitioner; Visit Provider Nurse Practitioner
DX: E78.00 Pure hypercholesterolemia, unspecified (principal); M06.9 Rheumatoid arthritis, unspecified; I10 Essential (primary) hypertension; R73.03 Prediabetes
CPT/HCPCS: 36415; 80053; 80061; 83036; 85025

== ENCOUNTER 2024-09-08 00:49 | Outpatient (CLI) | payer MEDICAID, SELFPAY ==
--- NOTE | 2024-09-08 13:43 | DI.MAMMO_ITS ---
Exam(s) MAMMO SCREENING EXAM: MAMMO SCREENING CLINICAL HISTORY: [id number] TECHNIQUE: Bilateral full field digital CC and MLO mammographic images were obtained with 3D tomosyn thesis and utilizing computer aided detection (CAD). COMPARISON: Available for comparison. FINDINGS: Masses/Architectural Distortion: There is a focal asymmetry in the outer right breast on the cranioca udad view almost 12 cm from the nipple. Microcalcifications: No suspicious pleomorphic-type are seen. Benign type calcifications are seen in both breasts. Skin Thickening/Nipple Retraction: None. IMPRESSION: 1. Question of a focal rounded asymmetry in the outer right breast on the craniocaudad view. 2. This area should be further evaluated with a spot compression view. Ultrasound may be indicated a t that time. BI-RADS Category 0 - Incomplete: Need additional imaging evaluation Breast Density - Category B - Scattered areas of fibroglandular density Breast density category C or D implies that the patient has dense breast tissue. Dense breast tissue is very common and is not abnormal but dense breast tissue can make it harder to find cancer on a ma mmogram. Also, dense breast tissue may increase their breast cancer risk. This information about the result of the mammogram report was provided to the patient to raise their awareness. Use this report when you speak with the patient about their risks for breast cancer, which includes their family hist ory. At that time, you may recommend for more screening tests (Ultrasound or MRI) as they might be us eful based on their risk. A negative radiographic report should not delay biopsy if a dominant or clinically suspicious mass is present. Up to ten percent of cancers are not identified on mammography. A negative report may reinforce clinical impression. Adenosis and dense breasts may obscure an underlying neoplasm. False positive reports average 6 to 10%. Patient will receive a letter notifying them of these results.
== END 2024-09-08 01:09 ==
LOC: DI 00:49
PROVIDERS: PCP Nurse Practitioner; Visit Provider Nurse Practitioner
DX: Z12.31 Encounter for screening mammogram for malignant neoplasm of breast (principal); R92.323 Mammographic fibroglandular density, bilateral breasts
CPT/HCPCS: 77063; 77067

== ENCOUNTER 2024-09-08 00:49 | Outpatient (CLI) | payer MEDICAID, SELFPAY ==
--- NOTE | 2024-09-08 08:00 | DI.MRI_ITS ---
Exam(s) MR LOWER JOINT LT WO EXAM: MR LOWER JOINT LT WO CLINICAL HISTORY: lt knee pain, rheumatoid arthritis, m25.562,m06.9 TECHNIQUE: Multiplanar multisequence MRI of the knee was performed. COMPARISON: Knee x-rays of 09/08/2024 FINDINGS: EFFUSION: There is a small knee joint effusion. There is no Easton cyst in the popliteal fossa. No s ignificant synovial hypertrophy and there are no loose intra-articular bodies evident. MARROW:No evidence of fracture or prominent bone contusion. There is mild subarticular edema in the outer 3rd of the medial tibial plateau. There are no significant osseous lesions. PATELLOFEMORAL COMPARTMENT: There is uniform mild increased signal within the intra-articular quadric eps fat pad located just behind the quadriceps and above the superior pole of the patella. The quadr iceps tendon is intact and there is no abnormal intraosseous signal in the patella.. The patellar li gament is also intact although there is subcutaneous edema anterior to the lower most aspect of the p atellar ligament where it attach is upon the anterior tibial tubercle. There is, however, no abnorma l signal within the tendon at this level nor abnormal marrow signal within the anterior tibial tuberc le. No abnormal signal within the anterior intra-articular Hoffa fat pad. There is no significant thinning of the retropatellar cartilage. No evidence of fissure nor signific ant chondral defect. No osteochondral defect at this level.There is no intraosseous signal to sugges t recent patellar dislocation. There are no patellar retinacular tears. CRUCIATE LIGAMENTS: The anterior cruciate ligament is intact.The posterior cruciate ligament is intac t. MEDIAL COMPARTMENT/MEDIAL MENISCUS: There is a mildly complex tear of the medial meniscus with tear s ignal seen at the inferior surface of the outer 3rd as well as just medial to the meniscal root of th e posterior horn. Some involvement of the body. The anterior horn of the medial meniscus appears in tact. There are no obvious chondral defects in the medial compartment but there is mild subarticular marrow edema in the outer aspect of the medial tibial plateau. There are no osteophytes in the medial comp artment. MEDIAL COLLATERAL LIGAMENT: Intact LATERAL COMPARTMENT/LATERAL MENISCUS: There is no evidence of lateral meniscal tear.There are no kat dral defects, osteochondral defects, subarticular marrow edema, nor osteophytes evident. ILIOTIBIAL BAND: Intact LATERAL COLLATERAL LIGAMENT COMPLEX: The fibular collateral ligament is intact. The biceps femoris t endon is intact.Popliteus muscle and tendon are intact. IMPRESSION: 1. There is a mildly complex tear of the posterior horn and body of the medial meniscus as described above. No bucket-handle configuration. The anterior horn of the medial meniscus appears intact. Th ere is mild marrow edema in the outer 3rd of the medial tibial plateau. No abnormal signal within th e medial femoral condyle and no prominent cartilage thinning in the medial compartment nor osteophyte s. 2. There are no cruciate ligament tears nor collateral ligament tears. 3. There is deep subcutaneous edema anterior to the tibial tubercle and most inferior aspect of the p atellar ligament. However, there is no abnormal signal within the patellar ligament nor within the a nterior tibial tubercle nor within the intra-articular Hoffa fat. Also no significant chondromalacia patella. 4. Mild increased uniform signal noted within the quadriceps fat pad but no abnormal findings in the adjacent quadriceps tendon nor within the patella. 5. There is a small knee joint effusion. No significant synovial thickening nor nodularity evident and there are no loose intra-articular bodies evident. DATA REPOSITORY:
== END 2024-09-08 01:09 ==
LOC: DI 00:49
PROVIDERS: PCP Nurse Practitioner; Visit Provider Student in an Organized Health Care Education/Training Program
DX: S83.232A Complex tear of medial meniscus, current injury, left knee, initial encounter (principal); X58.XXXA Exposure to other specified factors, initial encounter
CPT/HCPCS: 73721

== ENCOUNTER 2024-09-15 01:00 | Outpatient (CLI) | payer MEDICAID, SELFPAY ==
--- NOTE | 2024-09-15 | DI.US_ITS ---
Exam(s) MG MAMMO SCREEN CALL BACK UNI US BREAST RT LIMITED EXAM: MG MAMMO SCREEN CALL BACK UNI CLINICAL HISTORY: R92.8 Abn mammo, Rounded asymmetry in outer RT breast craniocaudad view. TECHNIQUE: Craniocaudal spot compression digital Mammography views of the rightbreast with Tomosynt hesis and right breast ultrasound. COMPARISON: MG MG MAMMO SCREENING from 06/05/2020 MG MG MAMMO SCREENING from 10/28/2021 MG MG MAMMO SCREENING from 09/08/2024 FINDINGS: Mammography/Tomosynthesis: Masses: No persistent abnormality seen on spot compression views. Architectural Distortion: None seen. Microcalcifictions: No suspicious pleomorphic-type are seen. Skin Thickening/Nipple Retraction: None. Right breast US: Echotexture: Normal appearance of the glandular tissue. Shadowing: No suspicious foci. Cyst: None. Solid lesions: None seen. Ductal dilation: None. IMPRESSION: 1. No evidence of malignancy is noted. 2. Unless there is more urgent need, follow-up screening mammography is recommended, as per [place] [employer] guidelines. 3. The findings were discussed with the patient on the date of the examination. BI-RADS Category 1 - Negative Breast Density - Category B - Scattered areas of fibroglandular density A negative radiographic report should not delay biopsy if a dominant or clinically suspicious mass is present. Up to ten percent of cancers are not identified on mammography. A negative report may reinforce clinical impression. Adenosis and dense breasts may obscure an underlying neoplasm. False positive reports average 6 to 10%. Patient will receive a letter notifying them of these results.
== END 2024-09-15 01:20 ==
LOC: DI 01:00
PROVIDERS: PCP Nurse Practitioner; Visit Provider Nurse Practitioner
DX: Z12.31 Encounter for screening mammogram for malignant neoplasm of breast (principal); R92.8 Other abnormal and inconclusive findings on diagnostic imaging of breast
CPT/HCPCS: 76642; 77063; 77067

== ENCOUNTER 2025-03-10 10:22 | Outpatient (CLI) | payer MEDICAID, SELFPAY ==
--- NOTE | 2025-03-10 10:22 | RT.EKG_ITS ---
APPROVED REPORT Exam: Resting ECG Reason for Exam: Stimulant Monitoring Patient Location: O HR:97 bpm ECG Measurements Heart Rate 97 AXIS MN 137 P 36 QRSd 100 QRS 51 QT 350 T 16 QTc 445 Conclusion Sinus rhythm...normal P axis, V-rate 50- 99 Normal Electrocardiogram
== END 2025-03-10 10:23 | disposition home or self-care (01) ==
LOC: DI.KIM 10:23
PROVIDERS: PCP Nurse Practitioner Family; Visit Provider Nurse Practitioner Family
DX: Z51.81 Encounter for therapeutic drug level monitoring (principal)
CPT/HCPCS: 93010

== ENCOUNTER 2025-03-14 01:13 | Outpatient (CLI) | payer MEDICAID, SELFPAY ==
--- NOTE | 2025-03-14 07:15 | DI.MRI_ITS ---
Exam(s) MR LUMBAR SPINE WO EXAM: MR LUMBAR SPINE WO CLINICAL HISTORY: pain, MECHANICAL LOW BACK PAIN, M54.59 M54.541. TECHNIQUE: Multiplanar multisequence MRI of the Lumbar spine was performed. COMPARISON: CR XR LUMBAR SPINE 4 OR MORE VIEWS from 07/29/2021 FINDINGS: Conus medullaris is at normal level. There is no evidence of conus mass nor subjacent clumping of intrathecal nerve roots to suggest arachnoiditis. The distal thecal sac appears unremarkable.There is no evidence of Tarlov intrasacral cysts nor other significant findings within the sacral canal Bones:There are no fractures nor ominous osseous lesions in the lumbar vertebral bodies and visualized sacrum. With respect to the individual levels... T12-L1: Unremarkable L1-2: Normal disc height and signal. No disc herniation nor central canal stenosis.No foraminal stenosis L2-3: Normal disc height. No disc herniation nor central canal stenosis.No foraminal stenosis.No facet arthropathy. L3-4: Normal disc height. No disc herniation or central canal stenosis.No foraminal stenosis.No facet arthropathy. L4-5: Normal disc height and signal. No disc herniation. No central canal stenosis. No foraminal stenosis. No facet arthropathy. L5-S1: Normal disc height. Mild central subligamentous annular bulging. No prominent disc herniation. Central canal dimensions lower normal. Facet joints unremarkable. No foraminal stenosis. Soft tissues: Benign cysts noted in the lateral cortex of the right kidney. Measures 3.3 x 2.0 cm. Does not require further imaging workup. IMPRESSION: 1. Mild central subligamentous annular bulging at L5-S1 level. No prominent disc herniation. 2. No significant central canal stenosis nor foraminal stenosis in the lumbar spine. Also no significant facet arthropathy. DATA REPOSITORY:
== END 2025-03-14 01:33 ==
LOC: DI 01:13
PROVIDERS: PCP Nurse Practitioner Family; Visit Provider Anesthesiology Pain Medicine
DX: M54.59 Other low back pain (principal); M54.51 Vertebrogenic low back pain
CPT/HCPCS: 72148

== ENCOUNTER 2025-03-27 14:49 | Outpatient (CLI) | payer MEDICAID, SELFPAY ==
--- NOTE | 2025-03-27 06:00 | DI.RAD_ITS ---
Exam(s) XR PAIN CLINIC LUMBAR SP 2V EXAM: XR PAIN CLINIC LUMBAR SP 2V CLINICAL HISTORY: DX: Lumbar Spondylosis. TECHNIQUE: Fluoroscopy was provided for the referring physician for guidance with performing pain clinic injection procedure. COMPARISON: No exams were available for comparison FINDINGS: Please see procedure note for details. Fluoro time: 30.2 seconds RADIATION DOSE DELIVERED: hanh Hankins=18.3 mGy
[2025-03-27 15:04] VITALS: BP 129/80; PULSE 95; RESP 20; TEMP 37; O2SAT 98
--- NOTE | 2025-03-27 15:09 | PDOC.PAIN_ITS ---
Date of service: 03/27/25 Time of Service: 15:47 Pain Managment Procedure Note Procedure Note Procedure Note: Diagnostic Lumbar Facet Joint Injection ? Location: Bilateral Lumbar Facet Joints ? Levels: L5-S1 ? Pre-procedure Diagnosis: M47.817 Spondylosis without myelopathy or radiculopathy, lumbosacral region M47.816 Spondylosis without myelopathy or radiculopathy, lumbar region ? Post-procedure Diagnosis:? The same as above ? Sedation:? None ? Estimated blood loss:? less than 2 ml ? Surgeon: Yuri Espinosa MD COMMENT: From [facility] [place]:Injection History: 12/25/2022: Left L4, L5, SA RFA: 05/08/2022:?Right?L4, L5, SA??RFA: 04/10/2022:?Bilateral?L4, L5, SA?MBB :?At 100% for 3 hours or greater than 80% relief for several more hours with ADL improvements as documented. 03/27/2022:?Bilateral??L4- L5- SA?MBB (myofascial sensitivity right >?left with needle placement)?:At or greater than 80% relief for?8?hours with??ADL improvements as documented. Patient was very happy with her results. Pain 5/10 .Decision was made to proceed with intra-articular facet injections for the possibility of not having to do medial branch blocks and radiofrequency ablation if patient get long lasting relief (> 3 months). ? Procedure Detail:? The procedure and potential risks were explained to the patient and informed written consent was obtained. The patient was escorted to the procedure room and placed in the prone position. Pillows were utilized for proper positioning and comfort.? Time out was performed in the procedure room with nursing staff confirming the patient's identity, procedure to be performed, allergies, and any blood thinning or anti-platelet medications.? Sterile technique was maintained throughout the procedure.? The patient's lumbosacral area was prepped with chlorhexidine and draped in a sterile fashion. Lidocaine 1% was used to anesthetize the skin. An oblique fluoroscopic view was obtained, with visualization of the facet joint.? A 22gauge, Quincke needle was gently advanced through the facet capsule.? Needle placement was confirmed with fluoroscopy in AP, oblique, and lateral views by injecting 0.25ml of contrast.? 20 mg of Depomedrol and 0.5ml of 0.5% bupivacaine was injected into the capsule at L5-S1 Bilateral. The patient tolerated the procedure well and was discharged home with instructions. Permanent images saved and recorded. Plan:? Follow up prn COMMENT:Pain went from 5/10 to /10. Pain? 80 % better. Will use this as both diagnostic and potentially therapeutic.? With short-term relief from the level that it was not long-lasting then we will proceed with for LMBB #2 and possible radiofrequency ablation. Patient did have approximately 6 months relief from the previous RFA's Coding Conscious Sedation used for procedure: No CPT Codes: LMBB (includes Fluoro) Lumbar/Sacral, single lvl *BILATERAL* - [id number] ([id number]) 50 - BILATERAL PROCEDURE Additional Codes: Date of Service () Diagnoses: M47.817 Spondylosis without myelopathy or radiculopathy, lumbosacral region [M47.816 Spondylosis without myelopathy or radiculopathy, lumbar region]
[2025-03-27 15:49] VITALS: PULSE 94; O2SAT 96
[2025-03-27] MEDS: Nerve Block Tray 1 EACH MC ×2 (15:53→15:57)
[2025-03-27] MEDS: Bupivacaine 0.5% Pres-Free 10 ML VIAL IJ (15:54)
[2025-03-27] MEDS: methylPREDNISolone ACETATE 80 MG/ML VIAL IJ (15:55)
[2025-03-27] MEDS: Omnipaque 240 MG/ML 50 ML BTL IJ (15:56)
== END 2025-03-27 14:50 | disposition home or self-care (01) ==
LOC: PC 14:50
PROVIDERS: PCP Nurse Practitioner Family; Visit Provider Anesthesiology Pain Medicine
DX: M47.817 Spondylosis without myelopathy or radiculopathy, lumbosacral region (principal); M47.816 Spondylosis without myelopathy or radiculopathy, lumbar region
CPT/HCPCS: 64493; 72100; J0665; J1010; Q9967